=== PATIENT | female | born 1965 | race Caucasian/White ===

== ENCOUNTER 2016-06-16 07:35 | Inpatient (IN) | payer OTHER ==
[~2016-06-16 07:35] MED LIST: CLINDAMYCIN PHOSPHATE 900 MG in DEXTROSE 5 % IN WATER 100 ML IV PRN; MORPHINE SULFATE 15 MG TABLET.SA PO PRN; ROPIVACAINE HCL/PF 100 MG, KETOROLAC TROMETHAMINE 30 MG, EPINEPHrine 0.2 MG in NORMAL S... IJ PRN; TRANEXAMIC ACID 1,000 MG in NORMAL SALINE 100 ML IV PRN
[2016-06-16] MEDS: RINGERS SOLUTION,LACTATED 1,000 ML IV PRN ×2 (08:07→10:55)
[2016-06-16] MEDS ORDERED: MORPHINE SULFATE 15 MG TABLET.SA PO PRN (09:05)
--- NOTE | 2016-06-16 10:17 | PREOP NOTE ---
Preoperative Progress Note - Preoperative Changes Changes to Preop Condition?: No Changes
[2016-06-16] MEDS ORDERED: RINGERS SOLUTION,LACTATED 1,000 ML IV ONE ×2 (12:20→13:20)
[2016-06-16] MEDS ORDERED: PROMETHAZINE HCL 5 MG in DEXTROSE 5 % IN WATER 50 ML IV PRN ×2 (13:13)
[2016-06-16] MEDS ORDERED: ACETAMINOPHEN 500 MG TABLET PO PRN (13:13)
[2016-06-16] MEDS ORDERED: ZOLPIDEM TARTRATE 5 MG TABLET PO PRN (13:13)
[2016-06-16] MEDS ORDERED: MAG HYDROX/ALUMINUM HYD/SIMETH 30 ML UDC PO PRN (13:13)
[2016-06-16] MEDS ORDERED: MAGNESIUM HYDROXIDE 30 ML UDC PO PRN (13:13)
[2016-06-16] MEDS ORDERED: diphenhydrAMINE HCL 50 MG/ML VIAL IV PRN (13:13)
[2016-06-16] MEDS ORDERED: ONDANSETRON HCL/PF 2 MG/ML VIAL IV PRN (13:13)
[2016-06-16] MEDS: DEXTROSE 5%-LACTATED RINGERS 1,000 ML IV PRN ×2 (14:14→22:13)
[2016-06-16] MEDS: KETOROLAC TROMETHAMINE 30 MG/ML VIAL IV SCH ×2 (14:16→19:50)
--- NOTE | 2016-06-16 14:17 | OR ---
Operative Report - Dictated Report Narrative: Date: 06/16/2016 Preoperative diagnosis: Right hip degenerative joint disease. Postoperative diagnosis: Right hip degenerative joint disease. Procedure: Right Total hip arthroplasty. Surgeon: Jonathan Chance M.D. Manager Nursing Home: Virgil Aguilar PA-C Anesthesia: Spinal and local periarticular joint injection. Complications: None Specimens: Bone for disposal. Estimated blood loss: 50 milliliters. Retained implants: Depuy [place] size 3 femoral stem high offset. Size 48 millimeter ouside diameter 3-hole [place] Gription acetabular cup. 48 millimeter outside by 32 millimeter inside diameter highly cross-linked acetabular liner. 32 millimeter diameter +9 millimeter cobalt chromium femoral head. Cancellous 6.5mm screw 30 millimeter length Indications: Mrs. Prasad is a 50-year-old female who has had long-standing right hip pain. This patient was followed in my clinic for period of time with significant complaints of right hip pain consistent with arthritic changes. She failed conservative measures including but not limited to activity modification, passage of time, medications, and other conservative measures. Patient wished to proceed with surgical treatment. The risks, benefits, and alternatives were discussed in clinic. The risks of , blood clots, bleeding, infection, nerve/tendon blood vessel/ injury, malposition of components, dislocation and/or instability of joint, intraoperative fracture, postoperative limited range of motion, persistent pain, failure of components, and need for additional procedures. Patient wished to proceed. Consent was obtained after answering all questions. Procedure: After marking the correct extremity on the floor, the patient was taken to the operating room. A timeout was performed. IV antibiotics consisting of clindamycin were administered prior to the procedure. A spinal anesthetic was induced by anesthesia. A Last catheter was inserted. The patient was then transitioned to a lateral position on a well-padded pegboard. An axillary roll was placed. The head was in neutral position. The non- operative down leg was well-padded with SCD and TREVON hose in place. The arms were supported and padded to protect from any undue pressure on the bony prominences and nerves. A well-padded anterior and posterior pelvic and chest posts were secured in order to maintain a stable position of the pelvis. This was placed so that the pelvis was perpendicular to the floor. The body was in line with the pelvis. Once it was felt that we had protected all the bony prominences and the patient was well secured with a safety belt as well, the leg was pre-scrubbed with alcohol, prepped and draped in a standard sterile fashion. A standard anterior lateral hip incision was marked out over the greater trochanter. Ioban drapes were then placed. The skin incision was then made. Sharp dissection with a scalpel utilizing cautery for hemostasis was carried out down to the gluteus and iliotibial band fascia. This was split in line with the skin incision. The greater trochanter bursa was excised. The anterior and posterior margins of the abductor tendon were identified. The anterior 1/2-1/3 of the tendon was tagged and reflected off the greater trochanter leaving a sleeve of tendon for repair at the completion of the case. This exposed the underlying hip joint capsule. A limb length stitch was placed in the skin and referencedd off a joel on the greater trochanter for evaluation of intraoperative limb lengths. An inverted T-type capsulotomy was made extending this up to the brim of the acetabulum. Using Homans to assist with elevation of the soft tissues off the anterior, superior, and inferior aspects of the femoral neck, the hip was then placed in a figure 4 position and the femoral head was dislocated. With the leg in an externally rotated and adducted position, the cutting flag was utilized in order to joel for a standard femoral neck cut approximately a fingerbreadth above the level of the lesser trochanter. This was done with reference to pre-operative films and overall alignment. This was done while protecting the surrounding soft tissues with Homans. The femoral head was then removed and sized for guidance on preparation of the acetabulum. It was noted that there was loss of articular cartilage on both the femoral head and weightbearing portions of the acetabulum. We then returned the leg to the table and turned our attention to the acetabulum. While protecting the surrounding soft tissues, the labrum and remaining tissue in the fovea were excised using a scalpel and cautery. A series of reamers up to size 47 millimeter were utilized to prepare the acetabulum. The final reamer had good purchase and exposed the bleeding subchondral bone. The acetabulum was then thoroughly irrigated ensuring that all bony and cartilaginous materials were removed, and the final acetabular shell was impacted into place. This was placed in approximately 45 degrees of abduction and 20 degrees of anteversion utilizing the outrigger and body axis for alignment. This had a good press fit. 1 6.5mm cancellous screw was placed in the superior posterior quadrant of the acetabulum. The shell was then thoroughly irrigated and the final polyethylene was impacted into place ensuring that it seated completely. This was then protected with a sponge while we returned our attention to the femur. With the leg in a figure 4 position, utilizing Homans for soft tissue protection , a box cutting osteotome, followed by Charnley awl, followed by serial reamers and broaches were utilized in order to prepare the femur. It was found that a size 3 broach gave good axial and rotational stability. The calcar reamer was utilized in order to clean up the cut edges. The proximal femur was visualized to ensure that there were no signs of fracture. A series of heads and necks were trialed. It was found that a high offset neck and a + 9 femoral head gave good overall stability. There was minimal longitudinal instability. With the leg in the position of sleep, the femoral head was well covered. Hip range of motion was able to reach full extension and external rotation to greater than 75 degrees prior to impingement along the posterior acetabulum. The hip was able to be flexed to greater than 90 degrees with internal rotation greater than 60 degrees prior to anterior impingement. The limb lengths were near equal based on comparison to the contralateral side and the prior placed limb length stitch. At this point it was felt these were the appropriately sized femoral components as well as neck and femoral head. The trial implants were removed. The femur was thoroughly irrigated. The final implants were impacted into place, and the hip was reduced. After ensuring that there was no damage to the proximal femur , the standard periarticular joint injection of ropivacaine, Toradol, and epinephrine were injected into the joint capsule and surrounding soft tissues. Anesthesia then administered intravenous tranexamic acid. The capsule was repaired with a single interrupted #1 Vicryl. The abductor tendon was repaired to the greater trochanter utilizing #5 Ethibond through drill holes. This was oversewn with #1 Vicryl. The fascia was closed with interrupted #1 Vicryl. A drain was placed above the fascia exiting proximally. The wounds were thoroughly irrigated as we closed in layers. The deep and subcutaneous fat layers were closed with 0 and 3-0 Vicryl respectively. The subcutaneous tissue was closed with a running 3-0 Vicryl and the skin with miguel. All sponge, needle, blade, and instrument counts were correct prior to closing the wounds. Sterile dressings consisting of Xeroform, 4 x 4's, ABD, and tape were applied. The patient was awoken and transferred to her hospital bed and then to the postanesthesia care unit in stable condition. Postoperative condition: The plan is to admit to the medical/surgical inpatient floor postoperatively. There will be a projected 2 to 4 day hospital stay. Postoperatively 24 hours of IV antibiotics, pain control, physical therapy, occupational therapy, and medical comanagement will be utilized. Patient will be weightbearing as tolerated with anterior hip precautions. Postoperative films will be obtained in the recovery room.
[2016-06-16] MEDS: oxyCODONE HCL/ACETAMINOPHEN 1 TAB TABLET PO PRN (18:02)
[2016-06-16] MEDS: HYDROmorphone HCL 1 MG/ML DISP.SYRIN IV PRN (20:35)
[2016-06-16] MEDS: MORPHINE SULFATE 15 MG TABLET.SA PO SCH (20:39)
[2016-06-16] MEDS: SENNOSIDES/DOCUSATE SODIUM 1 TAB TABLET PO SCH (20:39)
[2016-06-17] MEDS: CLINDAMYCIN PHOSPHATE 600 MG in DEXTROSE 5 % IN WATER 100 ML IV SCH ×4 (00:05→11:39)
[2016-06-17] MEDS: KETOROLAC TROMETHAMINE 30 MG/ML VIAL IV SCH ×4 (02:43→20:29)
[2016-06-17] MEDS: HYDROmorphone HCL 1 MG/ML DISP.SYRIN IV PRN (02:43)
[2016-06-17] MEDS: oxyCODONE HCL/ACETAMINOPHEN 1 TAB TABLET PO PRN ×2 (05:49→13:04)
[2016-06-17 06:43] LABS: Hematocrit 36.2 % (37.0-47.0); Hemoglobin 11.8 gm/dL (12.5-16.0); Mean Cell Volume 85.6 fl (78-100); Mean Corpuscular Hemoglobin 27.9 pg (27-31); Mean Corpuscular Hgb Conc 32.6 g/dl (32-36); Mean Platelet Volume 9.4 fl (6.0-9.5); Platelet Count 229 K/mm3 (150-450); Red Blood Count 4.23 M/mm3 (4.2-5.4); Red Cell Distribution Width 14.1 % (11.5-14.0); White Blood Count 7.6 K/mm3 (4.0-10.5)
[2016-06-17 06:58] LABS: Anion Gap 13.7 mmol/L (6.8-13.8); BUN/Creatinine Ratio 15.9 (9.0-21.6); Calcium * 8.5 mg/dL (7.9-10.9); Carbon Dioxide 27.1 mmol/L (24-32.6); Estimated Creat Clear 67.9; Potassium 3.8 mmol/L (3.4-4.6)
--- NOTE | 2016-06-17 08:16 | PN ---
Subjective - Date and Time Seen Date: 06/17/16 Time: 08:12 Subjective Narrative: Reports has felt good until sitting up this am- reports got nauseated. Pain controlled. No chest pain or SOB. No other complaints. Objective Objective Narrative: Bandages C/D/I. N/V intact RLE. Calves supple. N/V intact. 5/5 PF/DF ankle. - Vitals Vitals: Last Vital Signs Temp 37.0 C 06/17/16 00:30 Pulse 86 06/17/16 02:30 Resp 16 06/17/16 02:30 BP 127/89 06/17/16 02:30 Pulse Ox 97 06/17/16 02:30 - Abnormal Lab Findings Abnormal Lab Findings: Abnormal Lab Results 06/17/16 06/17/16 Range/Units 06:37 06:37 Hgb 11.8 L (12.5-16.0) gm/dL Hct 36.2 L (37.0-47.0) % RDW 14.1 H (11.5-14.0) % Random Glucose 115 H (70-110) mg/dL - Exam Constitutional: Present: Alert, Oriented x3, Cooperative, No distress Cauti Physician Documentation - Urinary Catheter Management Urethral (Last) Date of Insertion: 06/16/16 Time of Insertion: 11:05 Assessment/Plan - Problems/Diagnosis (1) History of total right hip arthroplasty Problem: Acute Narrative: PT, pain control, anticoagulation (2) Acute blood loss anemia Problem: Acute Narrative: asymptomatic, recheck labs tomorrow am (3) Nausea Problem: Acute Narrative: One episode with getting up, monitor pain medications for any symptoms
[2016-06-17] MEDS: MORPHINE SULFATE 15 MG TABLET.SA PO SCH ×2 (10:10→20:28)
[2016-06-17] MEDS: ENOXAPARIN SODIUM 40 MG/0.4 ML SYRG SC SCH (11:50)
[2016-06-17] MEDS: SENNOSIDES/DOCUSATE SODIUM 1 TAB TABLET PO SCH (20:28)
[2016-06-18] MEDS: KETOROLAC TROMETHAMINE 30 MG/ML VIAL IV SCH ×2 (02:58→07:56)
[2016-06-18] MEDS: oxyCODONE HCL/ACETAMINOPHEN 1 TAB TABLET PO PRN ×2 (05:03→13:08)
[2016-06-18 06:25] LABS: Hematocrit 34.7 % (37.0-47.0); Hemoglobin 11.2 gm/dL (12.5-16.0); Mean Cell Volume 85.9 fl (78-100); Mean Corpuscular Hemoglobin 27.7 pg (27-31); Mean Corpuscular Hgb Conc 32.3 g/dl (32-36); Platelet Count 211 K/mm3 (150-450); Red Blood Count 4.04 M/mm3 (4.2-5.4); Red Cell Distribution Width 13.9 % (11.5-14.0); White Blood Count 6.6 K/mm3 (4.0-10.5)
[2016-06-18 06:38] LABS: Anion Gap 11.7 mmol/L (6.8-13.8); BUN/Creatinine Ratio 7.4 (9.0-21.6); Calcium * 8.5 mg/dL (7.9-10.9); Carbon Dioxide 26.1 mmol/L (24-32.6); Estimated Creat Clear 59.2; Potassium 3.8 mmol/L (3.4-4.6)
[2016-06-18] MEDS: MORPHINE SULFATE 15 MG TABLET.SA PO SCH (08:27)
[2016-06-18] MEDS: ENOXAPARIN SODIUM 40 MG/0.4 ML SYRG SC SCH (12:21)
[2016-06-18 14:27] VITALS: BP 144/79
--- NOTE | 2016-06-18 14:37 | DS ---
"(1) Acute blood loss anemia Problem: Acute (2) History of total right hip arthroplasty Problem: Acute (3) Osteoarthritis Problem: Chronic Qualifiers: Osteoarthritis location: hip Osteoarthritis type: primary Laterality: right Qualified Code(s): M16.11 - Unilateral primary osteoarthritis, right hip Description of Stay: Miss Prasad was admitted to the floor after undergoing right total hip arthroplasty. Tolerated this well. Was admitted to the floor postoperatively for 24 hours of IV antibiotics, pain control, medical comanagement, and occupational and physical therapy. OT and PT were consulted to assist with activities of daily living and ambulation. Was made weightbearing as tolerated with anterior hip precautions. Pain was initially controlled with IV regimen. This was transitioned to oral once tolerating a by mouth intake. Was resumed on home diet and medications. Had a Last catheter inserted and the operating room which was discontinued on postoperative day 1. A drain was placed intraoperatively which was discontinued on postoperative day 2. Lovenox SCD and TREVON hose were utilized for DVT prophylaxis. Vital signs remained stable to the hospital course. Serial labs were obtained which showed a final hemoglobin of 11.2 grams. BMP was reviewed and was stable. Physical examination throughout the hospital course showed an extremity that had sensation that was intact to light touch, palpable pulses, a benign wound, motor intact to the toes , ankle, and knee. Once an oral pain regimen was tolerated and physical therapy goals were met, it was felt that they were stable for discharge to home. Instructions: Continue with weightbearing as tolerated and anterior hip precautions no active abduction. Keep the wound clean and dry. Cover with dry gauze and tape. Change every 2-3 days as needed. Cover wound while showering. Continue with physical therapy. Resume home diet. Report any fever over 101.5 Fahrenheit, uncontrolled pain, increased drainage, foul odor of drainage, new or increased calf pain or shortness of breath, or any other significant complaints. A 325mg dialy aspirin will be started after finishing anticoagulation if not allergic. Continue with TREVON hose on the operative extremity until instructed otherwise. No driving until instructed otherwise. Follow up in approximately 10-14 days. Procedures Performed: see notes below List Procedures: Right total hip arthroplasty Discharge Disposition: Home self care Disposition: Home self-care Condition: Good Discharge Activity: Weight bearing, Other - anterior hip precautions Discharge Diet: General/regular food Prison Therapy: Physicial Therapy Referrals: Марина Lance FNP [Primary Care Provider] - Additional Patient Instructions (free text): Fax PT order to [facility] at [phone]. Your PT appointment is on 06/23 at 10am, please arrive at 9:30am. This appointment at the [facility] ( on the [facility] , by [facility]. [facility] | [place] [address] ). You need to bring a copy of your insurance card and patient transportation driver's license with you. Prescriptions (Any new or edited meds): Enoxaparin Sodium [Lovenox] 40 mg SC Q24H #7 disp.syrin Morphine Sulfate [Ms Contin] 15 mg PO Q12H #20 tablet.sa oxyCODONE HCL/ACETAMINOPHEN [Percocet 5 MG/325 MG] 2 tab PO Q4H PRN #90 tablet PRN Reason: Moderate Pain Complete Home Medications List: Complete Home Medication List: Diclofenac Sodium [Voltaren] 50 mg PO BID 10/17/15 Enoxaparin Sodium [Lovenox] 40 mg SC Q24H #7 disp.syrin 06/18/16 Morphine Sulfate [Ms Contin] 15 mg PO Q12H #20 tablet.sa 06/18/16 Sennosides/Docusate Sodium [Senokot-S] 2 tab PO HS tablet 06/18/16 oxyCODONE HCL/ACETAMINOPHEN [Percocet 5 MG/325 MG] 2 tab PO Q4H PRN #90 tablet 06/18/16"
== END 2016-06-18 16:08 | disposition home or self-care (01) | DRG 470 ==
LOC: MS 07:35
PROVIDERS: ADMIT Orthopaedic Surgery; ATTEND Orthopaedic Surgery
PROC: 0SR90JZ Replacement of Right Hip Joint with Synthetic Substitute, Open Approach (ICD-10-PCS; principal; 2016-06-16 11:30)
DX: M16.11 Unilateral primary osteoarthritis, right hip (principal); D62 Acute posthemorrhagic anemia; Z87.891 Personal history of nicotine dependence

== ENCOUNTER 2019-12-19 08:23 | Inpatient (IN) ==
[~2019-12-19 08:23] MED LIST changes: -CLINDAMYCIN PHOSPHATE 900 MG in DEXTROSE 5 % IN WATER 100 ML IV PRN; +ROPIVACAINE HCL/PF 100 MG, EPINEPHrine 0.2 MG, KETOROLAC TROMETHAMINE 30 MG in NORMAL S... IJ PRN; -ROPIVACAINE HCL/PF 100 MG, KETOROLAC TROMETHAMINE 30 MG, EPINEPHrine 0.2 MG in NORMAL S... IJ PRN; +ceFAZolin SODIUM 1 GM VIAL IV PRN
[2019-12-19] MEDS ORDERED: ceFAZolin SODIUM 1 GM VIAL ONE (08:54)
[2019-12-19] MEDS ORDERED: PROPOFOL VIAL IV ONE (08:56)
[2019-12-19] MEDS ORDERED: MIDAZOLAM HCL/PF 5 MG/ML VIAL ONE (08:56)
--- NOTE | 2019-12-19 09:11 | ANES ---
Anesthesia Pre Procedure Eval Vitals/Labs: Last Vital Signs Temp 37.3 C 12/19/19 08:37 Pulse 84 12/19/19 08:37 Resp 18 12/19/19 08:37 BP 120/78 12/19/19 08:37 Pulse Ox 99 12/19/19 08:37 HOME MEDICATIONS hydrocodone 5 mg-acetaminophen 325 mg tablet 1 tab PO Q8H PRN 05/05/19 [Last Taken Unknown] lisinopril 20 mg tablet 20 mg PO DAILY 05/05/19 [Last Taken 12/19/19 08:00] diclofenac potassium 50 mg tablet 50 mg PO TID tab 11/17/19 [Last Taken Unknown] duloxetine 60 mg capsule,delayed release 60 mg PO DAILY cap 11/17/19 [Last Taken Unknown] Allergies/Adverse Reactions: Allergies Allergy/AdvReac Type Severity Reaction Status Date / Time cephalexin monohydrate Allergy Severe swelling Verified 12/19/19 08:56 [From Keflex] to face and throat Sulfa (Sulfonamide Allergy Severe swelling Verified 12/19/19 08:56 Antibiotics) to face and throat tetracycline Allergy Severe swelling Verified 12/19/19 08:56 to face and throat - Planned Procedure Planned Procedure: Left Total Hip Arthroplasty Medication List Reviewed:: Yes Allergies Verified: Yes Medical History (Last Reviewed 12/19/19 @ 09:02 by Skyler Boyer CRNA) Left hip pain Onset Date: ~04/2019 PTSD (post-traumatic stress disorder) Onset Date: ~2009 after her son Hypertension Onset Date: ~2018 Surgical History (Last Reviewed 12/19/19 @ 09:02 by Skyler Boyer CRNA) H/O total hip arthroplasty Onset Date: ~05/2016 right: Dr. Chance H/O tubal ligation Onset Date: ~1989 History of appendectomy Onset Date: ~1979 Family History (Last Reviewed 12/19/19 @ 09:02 by Skyler Boyer CRNA) Sister History of breast cancer Grandmother , maternal Ovarian cancer Uterine cancer Mother Rheumatoid arthritis Father Alive and well - Family Anesthesia History Family History:: no untoward family reactions to anesthesia, no familial bleeding tendencies, no family history of clotting disorders, no family history of premature - Airway/Neck/Teeth Teeth Condition: intact Mallampatti Score: 2 Thyromental (T-M) distance: > 6 cm Mandibulo Hyoid distance: > 3 cm - Respiratory Respiratory Physical: lungs clear Smoking Status: Never smoker Sleep Apnea currently treated: No Sleep Apnea by current assessment: No - Some signs but not definitive. - Cardiovascular Cardiac History: hypertension Tolerate Activity: Fair Heart Sounds: S1 & S2, Regular - Gastrointestinal NPO since: 0 - Anesthesia Assessment and Plan ASA Class: PS, III Anesthesia Type Plan: Spinal
[2019-12-19] MEDS ORDERED: CLINDAMYCIN IN 0.9 % SOD CHLOR 600 MG/50 ML BAG IV SCH (09:15)
[2019-12-19] MEDS ORDERED: BUPIVACAINE HCL/PF 10 ML VIAL ONE (09:21)
[2019-12-19] MEDS: RINGER'S SOLUTION,LACTATED 1,000 ML IV PRN ×2 (09:30→11:44)
[2019-12-19] MEDS ORDERED: diphenhydrAMINE HCL 50 MG/ML VIAL IV PRN (11:32)
[2019-12-19] MEDS ORDERED: MAG HYDROX/ALUMINUM HYD/SIMETH 30 ML UDC PO PRN (11:32)
[2019-12-19] MEDS ORDERED: ZOLPIDEM TARTRATE 5 MG TABLET PO PRN (11:32)
[2019-12-19] MEDS ORDERED: ONDANSETRON HCL/PF 2 MG/ML VIAL IV PRN (11:32)
[2019-12-19] MEDS ORDERED: MAGNESIUM HYDROXIDE 30 ML UDC PO PRN (11:32)
[2019-12-19] MEDS ORDERED: ACETAMINOPHEN 500 MG TABLET PO PRN (11:32)
[2019-12-19] MEDS ORDERED: MORPHINE SULFATE 4 MG/ML SYRG IV PRN (11:32)
--- NOTE | 2019-12-19 11:32 | OR ---
Operative Report - Dictated Report Narrative: Date: 12/19/2019 Preoperative diagnosis: Left hip degenerative joint disease. Postoperative diagnosis: Left hip degenerative joint disease. Procedure: Left total hip arthroplasty. Surgeon: Jonathan Chance M.D. Night Filler: Virgil Aguilar PA-C (provided an essential set of skilled, educated and assisted with transfer, positioning, prepping, draping, manipulation, traction, irrigation, suturing, and placement of dressings all of which cannot be performed by the available surgical crew) Anesthesia: Spinal and local periarticular joint injection. Complications: None Specimens: Bone. Estimated blood loss: 150 milliliters. Retained implants: Depuy [place] size 3 femoral stem high offset. Size 50 millimeter outside diameter 3-hole [place] Gription acetabular cup. 50 millimeter outside by 32 millimeter inside diameter highly cross-linked acetabular liner. 32 millimeter diameter +5 millimeter ceramic femoral head. Cancellous 6.5mm screw 30 millimeter length Indications: Mrs. Prasad is a 54-year-old female who has had longstanding left hip pain and arthrosis. This patient was followed in my clinic for period of time with significant complaints of left hip pain consistent with arthritic changes. She failed conservative measures including but not limited to activity modification, passage of time, medications, and other conservative measures. Patient wished to proceed with surgical treatment. The risks, benefits, and alternatives were discussed in clinic. The risks of , blood clots, bleeding, infection, nerve/tendon blood vessel/ injury, malposition of components, dislocation and/or instability of joint, intraoperative fracture, postoperative limited range of motion, persistent pain, failure of components, and need for additional procedures. Patient wished to proceed. Consent was obtained after answering all questions. Procedure: After marking the correct extremity on the floor, the patient was taken to the operating room. A timeout was performed. IV antibiotics consisting of clindamycin due to allergies were administered prior to the procedure. A spinal anesthetic was induced by anesthesia. A Last catheter was inserted. The patient was then transitioned to a lateral position on a well- padded pegboard. An axillary roll was placed. The head was in neutral position. The non-operative down leg was well-padded with SCD and TREVON hose in place. The arms were supported and padded to protect from any undue pressure on the bony prominences and nerves. A well-padded anterior and posterior pelvic and chest posts were secured in order to maintain a stable position of the pelvis. This was placed so that the pelvis was perpendicular to the floor. The body was in line with the pelvis. Once it was felt that we had protected all the bony prominences and the patient was well secured with a safety belt as well, the leg was pre-scrubbed with alcohol, prepped and draped in a standard sterile fashion. A standard anterior lateral hip incision was marked out over the greater trochanter. Ioban drapes were then placed. The skin incision was then made. Sharp dissection with a scalpel utilizing cautery for hemostasis was carried out down to the gluteus and iliotibial band fascia. This was split in line with the skin incision. The greater trochanter bursa was excised. The anterior and posterior margins of the abductor tendon were identified. The anterior 1/2-1/3 of the tendon was tagged and reflected off the greater trochanter leaving a sleeve of tendon for repair at the completion of the case. This exposed the underlying hip joint capsule. A limb length stitch was placed in the skin and referencedd off a joel on the greater trochanter for evaluation of intraoperative limb lengths. An inverted T-type capsulotomy was made extending this up to the brim of the acetabulum. Using Homans to assist with elevation of the soft tissues off the anterior, superior, and inferior aspects of the femoral neck, the hip was then placed in a figure 4 position and the femoral head was dislocated. With the leg in an externally rotated and adducted position, the cutting flag was utilized in order to joel for a standard femoral neck cut approximately a fingerbreadth above the level of the lesser trochanter. This was done with reference to pre-operative films and overall alignment. This was done while protecting the surrounding soft tissues with Homans. The femoral head was then removed and sized for guidance on preparation of the acetabulum. It was noted that there was loss of articular cartilage on both the femoral head and weightbearing portions of the acetabulum. We then returned the leg to the table and turned our attention to the acetabulum. While protecting the surrounding soft tissues, the labrum and remaining tissue in the fovea were excised using a scalpel and cautery. A series of reamers up to size 50 millimeter were utilized to prepare the acetabulum. The final reamer had good purchase and exposed the bleeding subchondral bone. The acetabulum was then thoroughly irrigated ensuring that all bony and cartilaginous materials were removed, and the final acetabular shell was impacted into place. This was placed in approximately 45 degrees of abduction and 20 degrees of anteversion utilizing the outrigger and body axis for alignment. This had a good press fit. 1 6.5mm cancellous screw was placed in the superior posterior quadrant of the acetabulum. The shell was then thoroughly irrigated and the final polyethylene was impacted into place ensuring that it seated completely. This was then protected with a sponge while we returned our attention to the femur. With the leg in a figure 4 position, utilizing Homans for soft tissue protection, a box cutting osteotome, followed by Charnley awl, followed by serial reamers and broaches were utilized in order to prepare the femur. It was found that a size 3 broach gave good axial and rotational stability. The calcar reamer was utilized in order to clean up the cut edges. The proximal femur was visualized to ensure that there were no signs of fracture. A series of heads and necks were trialed. It was found that a high offset neck and a + 5 femoral head gave good overall stability. There was minimal longitudinal instability. With the leg in the position of sleep, the femoral head was well covered. Hip range of motion was able to reach full extension and external rotation to greater than 75 degrees prior to impingement along the posterior acetabulum. The hip was able to be flexed to greater than 90 degrees with internal rotation greater than 60 degrees prior to anterior impingement. The limb lengths were near equal based on comparison to the contralateral side and the prior placed limb length stitch. At this point it was felt these were the appropriately sized femoral components as well as neck and femoral head. The trial implants were removed. The femur was thoroughly irrigated. The final implants were impacted into place, and the hip was reduced. After ensuring that there was no damage to the proximal femur, the standard periarticular joint injection of ropivacaine, Toradol, and epinephrine were injected into the joint capsule and surrounding soft tissues. Anesthesia then administered intravenous tranexamic acid. The capsule was repaired with a single interrupted #1 Vicryl. The abductor tendon was repaired to the greater trochanter utilizing #5 Ethibond through drill holes. This was oversewn with #1 Vicryl. The fascia was closed with interrupted #1 Vicryl and running #1 strata fix barbed suture. The wounds were thoroughly irrigated as we closed in layers. The deep and subcutaneous fat layers were closed with 0 and 3-0 Vicryl respectively. The subcutaneous tissue was closed with a running 3-0 Vicryl and the skin miguel. All sponge, needle, blade, and instrument counts were correct prior to closing the wounds. Sterile dressings consisting of xeroform, 4 x 4's, and tape were applied. The patient was awoken and transferred to her hospital bed and then to the postanesthesia care unit in stable condition. Postoperative condition: The plan is to admit to the medical/surgical inpatient floor postoperatively. There will be a projected 1 to 3 day hospital stay. Postoperatively 24 hours of IV antibiotics, pain control, physical therapy, occupational therapy, and medical comanagement will be utilized. Patient will be weightbearing as tolerated with anterior hip precautions. Postoperative films will be obtained in the recovery room.
--- NOTE | 2019-12-19 11:45 | ANES ---
Post Anesthesia Discharge - Transfer of Care Transfer of Care handoff given to nurse: Yes - Discharge from PACU Discharge from PACU when meets criteria: Yes - Alert and comfortable.
--- NOTE | 2019-12-19 12:07 | ANES ---
Post Anesthesia Assessment - Vital Signs Vitals: Last Vital Signs Temp 36.3 C 12/19/19 12:00 Pulse 61 12/19/19 12:00 Resp 16 12/19/19 12:00 BP 98/66 12/19/19 12:00 Pulse Ox 97 12/19/19 12:00 Airway Patency: Normal - Mental Status Level Of Consciousness: Awake, Alert, Appropriate - Pain Level Pain Score: 0 - N/V Assessment Nausea/Vomiting Presence: None Dehydration:: No
[2019-12-19] MEDS: DEXTROSE 5%-LACTATED RINGERS 1,000 ML IV PRN ×2 (12:24→20:30)
[2019-12-19] MEDS: KETOROLAC TROMETHAMINE 15 MG/ML VIAL IV SCH ×3 (12:26→23:45)
[2019-12-19] MEDS: oxyCODONE HCL/ACETAMINOPHEN 1 TAB TABLET PO PRN ×2 (16:03→22:45)
[2019-12-19] MEDS: CLINDAMYCIN IN 0.9 % SOD CHLOR 900 MG/50 ML BAG IV SCH (19:26)
[2019-12-19] MEDS: MORPHINE SULFATE 15 MG TABLET.SA PO SCH (20:32)
[2019-12-19] MEDS ORDERED: SENNOSIDES/DOCUSATE SODIUM 1 TAB TABLET PO SCH (21:00)
[2019-12-20] MEDS: CLINDAMYCIN IN 0.9 % SOD CHLOR 900 MG/50 ML BAG IV SCH (02:56)
[2019-12-20] MEDS: KETOROLAC TROMETHAMINE 15 MG/ML VIAL IV SCH ×2 (05:42→11:14)
[2019-12-20 06:34] LABS: Hematocrit 24.6 % (37.0-47.0); Mean Cell Volume 70.9 fl (78-100); Mean Corpuscular Hemoglobin 20.5 pg (27-31); Mean Corpuscular Hgb Conc 28.9 g/dl (32-36); Mean Platelet Volume 8.7 fl (8-12.5); Platelet Count 300 K/mm3 (150-450); Red Blood Count 3.47 M/mm3 (4.2-5.4)
[2019-12-20 06:44] LABS: Hemoglobin 7.1 gm/dL (12.5-16.0)
[2019-12-20 07:00] LABS: Anion Gap 11.3 mmol/L (6.8-13.8); BUN/Creatinine Ratio 12.2 (9.0-21.6); Calcium * 8.7 mg/dL (7.9-10.9); Carbon Dioxide 27.5 mmol/L (24-32.6); Estimated Creat Clear 46.3; Potassium 3.8 mmol/L (3.4-4.6)
[2019-12-20] MEDS: oxyCODONE HCL/ACETAMINOPHEN 1 TAB TABLET PO PRN ×3 (07:24→16:44)
[2019-12-20] MEDS ORDERED: DULoxetine HCL 30 MG CAPSULE.SA PO SCH (09:00)
[2019-12-20] MEDS ORDERED: LISINOPRIL 20 MG TABLET PO SCH (09:00)
[2019-12-20] MEDS: MORPHINE SULFATE 15 MG TABLET.SA PO SCH (09:27)
[2019-12-20] MEDS ORDERED: MORPHINE SULFATE 2 MG/ML DISP.SYRIN IV PRN (10:00)
[2019-12-20] MEDS ORDERED: ENOXAPARIN SODIUM 40 MG/0.4 ML SYRG SC SCH (10:33)
--- NOTE | 2019-12-20 15:51 | DS ---
(1) Status post left hip replacement Problem: Acute (2) Hypertension Problem: Chronic Date of Discharge:: 12/20/19 Hospital Course: Mrs Prasad was admitted to the floor after undergoing left total hip arthroplasty. Tolerated this well. Was admitted to the floor postoperatively for 24 hours of IV antibiotics, pain control, medical comanagement, and occupational and physical therapy. OT and PT were consulted to assist with activities of daily living and ambulation. Was made weightbearing as tolerated with range of motion as tolerated utilizing anterior hip precautions. Pain was initially controlled with IV regimen. This was transitioned to oral once tolerating a by mouth intake. Was resumed on home diet and medications. Had a Last catheter inserted and the operating room which was discontinued on postoperative day 1. Lovenox SCD and TREVON hose were utilized for DVT prophylaxis. Vital signs remained stable to the hospital course. Serial labs were obtained which showed a final hemoglobin of 7.1 grams. BMP was reviewed and was stable. Physical examination throughout the hospital course showed an extremity that had sensation that was intact to light touch, palpable pulses, a benign wound, motor intact to the toes, ankle, and knee. Knee range of motion was approximately [] degrees to [] degrees. Once an oral pain regimen was tolerated and physical therapy goals were met, it was felt that they were stable for discharge to home. Instructions: Continue with weightbearing as tolerated and range of motion as tolerated utilizing anterior hip precautions. Keep wound clean and dry. If you note any drainage or for comfort you can cover with dry gauze and tape. Change every 2- 3 days as needed. Continue with physical therapy. Resume home diet. Report any fever over 101.5 Fahrenheit, uncontrolled pain, increased drainage, foul odor of drainage, new or increased calf pain or shortness of breath, or any other significant complaints. A 325mg dialy aspirin will be started after finishing anticoagulation if not allergic. Continue with TREVON hose on the operative extremity until instructed otherwise. No driving until instructed otherwise. Follow up in approximately 10-14 days. Procedures Performed: see notes below List Procedures: Left total hip arthroplasty Results and Findings: Lab Pending Results 12/20/19 06:30: WBC 7.0, RBC 3.47 L, Hgb 7.1 L* D, Hct 24.6 L, MCV 70.9 L, MCH 20.5 L, MCHC 28.9 L, RDW 22.0 H, Plt Count 300, MPV 8.7 12/20/19 06:30: Sodium 137, Plasma Sodium 137, Potassium 3.8, Chloride 102, Carbon Dioxide 27.5, Anion Gap 11.3, BUN 14, Creatinine 1.15, Est GFR (Non-Af Amer) 52 L, BUN/Creatinine Ratio 12.2, Random Glucose 110, Calcium 8.7 Discharge Location: Home Disposition: Home self-care Condition: Good Discharge Activity: Activity as tolerated, Weight bearing, Other - Utilizing anterior hip precautions with wheeled walker Discharge Diet: Low salt Referrals: Andrea Lerma APRN [Primary Care Provider] - [place] [Staff Physician] - 01/04/20 10:30 am Additional Patient Instructions (free text): Physical Therapy appointment at [facility] on 12/22/2019 @ 08:00am. Follow up Orthopedic office appointment on ThursdayJanuary 03 at 10:30am. Prescriptions (Any new or edited meds): Enoxaparin Sodium [Lovenox] 40 mg SC Q24H #7 disp.syrin Transmission Status: Pending to [employer] #[id number] Morphine Sulfate [Ms Contin] 15 mg PO Q12H #14 tablet.sa Transmission Status: Received by [employer] #[id number] oxyCODONE HCL/ACETAMINOPHEN [Percocet 5 MG/325 MG] 2 tab PO Q4H PRN #56 tab PRN Reason: Moderate Pain (Pain Scale 4-6) Transmission Status: Received by [employer] #[id number] Sennosides/Docusate Sodium [Senokot-S] 2 tab PO HS #30 tab Transmission Status: Pending to [employer] #[id number] Complete Home Medications List: Complete Home Medication List: lisinopril 20 mg tablet 20 mg PO DAILY 05/05/19 diclofenac potassium 50 mg tablet 50 mg PO TID tab 11/17/19 duloxetine 60 mg capsule,delayed release 60 mg PO DAILY cap 11/17/19 Enoxaparin Sodium [Lovenox] 40 mg SC Q24H #7 disp.syrin 12/20/19 Morphine Sulfate [Ms Contin] 15 mg PO Q12H #14 tablet.sa 12/20/19 Sennosides/Docusate Sodium [Senokot-S] 2 tab PO HS #30 tab 12/20/19 oxyCODONE HCL/ACETAMINOPHEN [Percocet 5 MG/325 MG] 2 tab PO Q4H PRN #56 tab 12/20/19 Amb Orders for Discharge: PT Evaluation and Treatment* Facility: [facility], Location: Rehabilitation Services Forms: Patient Portal Registration
[2019-12-20 16:20] VITALS: BP 132/51
== END 2019-12-20 16:19 | disposition home or self-care (01) | DRG 470 ==
LOC: MS 08:23 → EDSTATUS 09:30
PROVIDERS: ADMIT Orthopaedic Surgery; ATTEND Orthopaedic Surgery
DX: M16.12 Unilateral primary osteoarthritis, left hip; I10 Essential (primary) hypertension; F32.9 Major depressive disorder, single episode, unspecified
CPT/HCPCS: 36415; 73502; 80048; 85027; 97110; 97116; 97161; 97165; 97530; 97535

== ENCOUNTER 2020-02-10 11:30 | Inpatient (IN) ==
--- NOTE | 2020-02-10 12:20 | ERNOTE ---
Dyspnea - Date Date of Service: 02/10/20 - General Time Seen by Provider: 02/10/20 11:40 Source: patient Exam Limitations: physical impairment - Immun/Allergies/Home Medications Immunizations: IMMUNIZATION HX Immunizations Up to Date Yes History of Influenza Vaccine No Hx Pneumococcal Vaccination No Allergies/Adverse Reactions: Allergies cephalexin monohydrate [From Keflex] Allergy (Severe, Verified 02/10/20 11:50) swelling to face and throat Sulfa (Sulfonamide Antibiotics) Allergy (Severe, Verified 02/10/20 11:50) swelling to face and throat tetracycline Allergy (Severe, Verified 02/10/20 11:50) swelling to face and throat Home Medications: HOME MEDICATIONS Ferrous Sulfate 325 mg PO BID #60 tablet. 01/16/20 [Last Taken Unknown] Diclofenac Sodium [Voltaren] 50 mg PO HS 02/10/20 [Last Taken Unknown] Duloxetine HCl 60 mg PO DAILY 02/10/20 [Last Taken Unknown] Furosemide [Lasix] 40 mg PO DAILY 02/10/20 [Last Taken Unknown] Lisinopril [Prinivil] 10 mg PO DAILY 02/10/20 [Last Taken Unknown] - History of Present Illness Narrative: Patient is a 54 years old female who present sent from the office of Dr. Chance. Patient past medical history is significant for a left arthroplasty done in November 2013 with poor incision healing. Patient presented to the office of Dr. Castellanos this morning to have her wound evaluated, and was found to be tachypneic, short of breath, and tachycardic. Dr. Castellanos asked her to come to the ED to be evaluated. Patient reports that post surgery she initially did well. But then developed a blister over her incision will make it difficult in the following ways to remove stitches. She den started to use a walker to help her ambulate, and consequently developed costochondritis due to putting too much strength on her shoulder. 3 weeks ago patient reports she had a CT chest PE protocol performed due to her tachypnea which rule out pulmonary emboli. Patient also reports leg swelling for which she has been given Lasix by her primary 1 month ago, and reports no improvement in her leg swelling. She reports that her primary increase her Lasix to 40 mg last Thursday. Patient also reports that prior to surgery his hemoglobin was 7.1, she was started on iron supplementation post surgery and her last hemoglobin done at the clinic 2 to 3 weeks ago is still around 7. Patient reported that her last colonoscopy was done 10 years ago. She reports having a large clot with each bowel movement and bleeding hemorrhoid. Patient reported that since surgery she has been having difficulty with constipation due to being on opioids for pain management. She takes stool softener daily. Her last bowel movement was 2 days ago, and was having clots and bright red blood in it. She reports having improvement in her costochondritis and having only mild pain on the right upper sternocostal cartilage. Date (Duration): 01/20/20 Severity: moderate Treatment C[employer] INST[employer]ER: none Initiating event: Reports: other - Post surgery Frequency of episodes: Reports: chronic episodes, other - For almost 2 months Modifying Factors - (Improves): Reports: rest Modifying Factors (Worsens): Reports: other - Ambulation Prior Treatment: Reports: recently seen - By Dr. Pressley who sent her to the ED Review of Systems - Review of Systems Constitutional: Absent: fever EYE: Absent: eye pain ENT: Absent: ear pain Respiratory: Present: shortness of breath. Absent: cough, wheezing Cardiology: Present: other - Right side of chest along upper cartilage of the sternocostal junction Genitourinary: Absent: dysuria Musculoskeletal: Absent: joint pain - Left hip Endocrine: Present: intolerance to heat, intolerance to cold. Absent: excessive sweating All Other Systems: All systems neg except as marked Medical History (Last Reviewed 02/10/20 @ 11:50 by Estelle Arana RN) Left hip pain Onset Date: ~04/2019 PTSD (post-traumatic stress disorder) Onset Date: ~2009 after her son Hypertension Onset Date: ~2018 Surgical History: Surgical History (Last Reviewed 02/10/20 @ 11:50 by Estelle Arana RN) H/O total hip arthroplasty Onset Date: ~05/2016 right: Dr. Chance, 12/19/19 left hip: H/O tubal ligation Onset Date: ~1989 History of appendectomy Onset Date: ~1979 Family History: Family History (Last Reviewed 02/10/20 @ 11:50 by Estelle Arana RN) Sister History of breast cancer Grandmother , maternal Ovarian cancer Uterine cancer Mother Rheumatoid arthritis Father Alive and well Social History: (Last Reviewed 02/10/20 @ 11:50 by Estelle Arana RN) Social History: Marital status: seperated current occupational status: employed current occupation: Paraprofessional Highest education level completed: some college, no degree Service: No Tobacco: Smoking Status: Never smoker Alcohol: alcohol intake: current details: rare Substance Use: substance use type: marijuana Dietary Habits: caffeine: Yes Type: carbonated beverages, coffee, tea Physical Exam - Physical Exam General Appearance: Present: wd/wn, moderate distress, other - Pale Head Exam: Present: normal inspection Eye Exam: Normal inspection: bilateral, PERRL: bilateral, EOMI: bilateral Ears, Nose, Throat: Present: normal ENT inspection Neck: Present: normal inspection Respiratory: Present: other - Tachypneic Cardiovascular/Chest: Present: no murmur, tachycardia, other - Lower extremity edema 2+ Peripheral Pulses: N=norm/S=strong/W=weak/B=bound/A=absent: Radial (R): Normal, Radial (L): Normal, Dorsalis-pedis (R): Normal, Dorsalis-pedis (L): Normal Gastrointestinal/Abdominal: Present: normal bowel sounds, other - Obesity Back Exam: Present: normal inspection Extremity Exam: Present: pedal edema - Left hip surgical incision not completely closed., extremity edema, other Skin Exam: Present: normal color, pallor Lymphatic Exam: Present: no adenopathy Progress - Results and Orders Patient's Lab Results:: I have reviewed the patient's lab results. - Vital Signs Patient's Vital Signs:: I have reviewed the patient's vital signs. Vital Signs: Vital Signs 02/10/20 11:30 02/10/20 11:50 Temperature 36 C Pulse Rate 91 99 Respiratory Rate 30 H Blood Pressure 138/56 - EKG EKG #1 EKG: other - sinus tachycardia, nonspecific ST and T wave abnormality, no significant change beside tachycardia when compared to previous EKG done on zero 11/17 2019 EKG read: Interp. by me - X-Ray X-Ray #1 Interpretation: Interp. by me X-ray Comments: no acute cardiopulmonary findings. - Progress/Reassessment Chief Complaint: GI Bleed Progress Note-Subjective: 02/10/20 12:[address] Mohan admitting physician, patient hgb of 2.8 from acute blood loss anemia and acute renal failure with creatinine of 2.85 with normal creatinine at baseline. He accepted admission, I informed him that I ordered 4 units of PRBCs, I transfused 2 units PRBCs anshul and kept 2 on hold. He is in agreement with this plan and will see patient on the floor. I also contacted Dr Chance who sent patient to the ED, to inform him of patient condition. He appreciated the call and he will see patient after discharge for follow, and he agreed to have standard wound care of her post surgical incision during inpatient. Patient low hemoglobin is partially secondary to her chronic mycrocytic anemia, partially post surgical and partially due to her chronic hemorrhoids bleeding. We don't have GI here is [facility], I offered Dr Mohan to consult General Surgery from the ED and he said he will take care of it on the floor. Departure Clinical Impression: Anemia, Microcytic anemia, Acute renal failure, Hyperkalemia, Dehydration, Elevated lactic acid level - Departure Disposition: Still a patient Condition: Serious
[2020-02-10 12:29] LABS: Mean Cell Volume 80.3 fl (78-100); Mean Corpuscular Hemoglobin 20.4 pg (27-31); Mean Corpuscular Hgb Conc 25.5 g/dl (32-36); Mean Platelet Volume 8.8 fl (8-12.5); Platelet Count 570 K/mm3 (150-450); Red Blood Count 1.37 M/mm3 (4.2-5.4); Red Cell Distribution Width 27.7 % (11.5-14.0); White Blood Count 25.5 K/mm3 (4.0-10.5)
[2020-02-10 12:34] LABS: Prothrombin Time (Patient) 13.4 Seconds (9.1-10.7)
[2020-02-10 12:38] LABS: Albumin * 1.9 gm/dl (3.4-5.0); Anion Gap 28.6 mmol/L (6.8-13.8); BUN/Creatinine Ratio 8.8 (9.0-21.6); Bilirubin, Total 0.5 mg/dL (0.0-1.1); Ca. Corrected For Albumin 9.8 mg/dL (8.4-10.2); Calcium * 8.4 mg/dL (7.9-10.9); Carbon Dioxide 12.4 mmol/L (24-32.6); Total Protein 6.8 gm/dL (6.2-8.2)
[2020-02-10 12:39] LABS: INR 1.37 INR (0.92-1.08); Partial Thrombolplastin Time 22.4 Seconds (24-32)
[2020-02-10 12:40] LABS: Hemoglobin 2.8 gm/dL (12.5-16.0)
[2020-02-10 12:42] LABS: Total Cells Counted 100
[2020-02-10 12:58] LABS: Anisocytosis 3+; Band 11 % (0-2.0); Eosinophil 1 % (0-3); Immature Granulocyte 4 (0-1); Lymphocyte 9 % (20-51); Monocyte 2 % (0-9); Neutrophil 73 % (42-75); Neutrophil # 18.6 K/mm3 (1.3-6.0)
[2020-02-10 12:59] LABS: Hypochromia 2+; Microcytosis 2+
[2020-02-10 13:01] LABS: Macrocytosis Trace; Platelet Estimate Increased (NORMAL); Polychromasia Trace
[2020-02-10] MEDS: ACETAMINOPHEN 500 MG TABLET PO PRN (16:33)
--- NOTE | 2020-02-10 18:28 | HP ---
Chief Complaint - Chief Complaint Date of Service: 02/10/20 Time of Service: 18:12 Chief Complaint: Shortness of breath, fatigue History of Present Illness: Carmen is a 54 yo female presenting to orthopedics clinic for follow up of left total hip repair. She had this surgery done on 12/19/19. She reports surgery went well. She reports chronic iron deficiency anemia. Her hemoglobin was near 7 at discharge, but she reports that is not uncommon for her hemoglobin. Over the last week she has been more fatigued, short of breath, and almost passed out driving today. She was sent to the ER from [facility] and was found to have a hemoglobin of 2.8. She reports that since being placed on iron and pain medications she has had constipation and hemorrhoids. She has had some bleeding from her hemorrhoids with bright red blood with stools and some clots. She reports no bowel movement for the past two days. Medical History (Last Reviewed 02/10/20 @ 14:09 by Shannen Sargent RN) Left hip pain Onset Date: ~04/2019 PTSD (post-traumatic stress disorder) Onset Date: ~2009 after her son Hypertension Onset Date: ~2018 Surgical History: Surgical History (Last Reviewed 02/10/20 @ 14:09 by Shannen Sargent RN) H/O total hip arthroplasty Onset Date: ~05/2016 right: Dr. Chance, 12/19/19 left hip: H/O tubal ligation Onset Date: ~1989 History of appendectomy Onset Date: ~1979 Family History: Family History (Last Reviewed 02/10/20 @ 14:09 by Shannen Sargent RN) Sister History of breast cancer Grandmother , maternal Ovarian cancer Uterine cancer Mother Rheumatoid arthritis Father Alive and well Social History: (Last Reviewed 02/10/20 @ 14:09 by Shannen Sargent RN) Social History: Marital status: seperated current occupational status: employed current occupation: Paraprofessional Highest education level completed: some college, no degree Service: No Tobacco: Smoking Status: Never smoker Alcohol: alcohol intake: current details: rare Substance Use: substance use type: marijuana Dietary Habits: caffeine: Yes Type: carbonated beverages, coffee, tea Review Of Systems (GEN) - Review of Systems Generalized/Overall Review: Present: Weakness. Absent: Chills, Fever EENTM: Present: No Symptoms Reported Respiratory: Present: Shortness of Breath. Absent: Cough Cardiac: Present: Chest Pain, Edema. Absent: Palpitations Abdominal: Present: Constipation, Bright blood from rectum. Absent: Nausea, Vomiting, Hematemesis, Abdominal Pain, Diarrhea, Melena Genitourinary: Present: No Symptoms Reported Musculoskeletal: Present: Joint Pain Neurological: Present: No Symptoms Reported Skin: Present: No Symptoms Reported Immunizations: IMMUNIZATION HX Immunizations Up to Date Yes History of Influenza Vaccine No Hx Pneumococcal Vaccination No Allergies/Adverse Reactions: Allergies Allergy/AdvReac Type Severity Reaction Status Date / Time cephalexin monohydrate Allergy Severe swelling Verified 02/10/20 11:50 [From Keflex] to face and throat Sulfa (Sulfonamide Allergy Severe swelling Verified 02/10/20 11:50 Antibiotics) to face and throat tetracycline Allergy Severe swelling Verified 02/10/20 11:50 to face and throat Home Medications: HOME MEDICATIONS Ferrous Sulfate 325 mg PO BID #60 tablet. 01/16/20 [Last Taken Unknown] Diclofenac Sodium [Voltaren] 50 mg PO HS 02/10/20 [Last Taken Unknown] Duloxetine HCl 60 mg PO DAILY 02/10/20 [Last Taken Unknown] Furosemide [Lasix] 40 mg PO DAILY 02/10/20 [Last Taken Unknown] Lisinopril [Prinivil] 10 mg PO DAILY 02/10/20 [Last Taken Unknown] Exam - Exam Vital Signs: Vital Signs - Last Taken Temp 36.7 C 02/10/20 18:00 Pulse 95 02/10/20 18:00 Resp 23 H 02/10/20 18:00 BP 127/74 02/10/20 18:00 Pulse Ox 96 02/10/20 17:51 Constitutional: Present: Alert, Oriented x3, Cooperative ENT Exam: Present: hearing grossly normal Eye Exam: bilateral eye: normal inspection Respiratory: Present: lungs clear, normal breath sounds, respiratory distress - mild tachypnea Cardiovascular/Chest: Present: tachycardia, chest tender - sternum, other - 2+ systolic murmur Peripheral Pulses: radial (R): 2+, radial (L): 2+ Abdomen: Present: Normal bowel sounds, soft, nontender Extremity: Present: lower extremity edema - 2+ Skin Exam: Present: normal color, warm/dry, no cyanosis Appearance: Present: appropriate appearance, appropriate insight Eye contact: Present: cooperative, good eye contact, normal speech Thoughts: Present: normal thought pattern, no apparent hallucination Diagnostic Studies: Abnormal Lab Results 02/10/20 02/10/20 02/10/20 Range/Units 12:00 12:00 12:00 WBC 25.5 H (4.0-10.5) K/mm3 RBC 1.37 L (4.2-5.4) M/mm3 Hgb 2.8 L* D (12.5-16.0) gm/dL Hct 11.0 L* D (37.0-47.0) % MCH 20.4 L (27-31) pg MCHC 25.5 L (32-36) g/dl RDW 27.7 H (11.5-14.0) % Plt Count 570 H (150-450) K/mm3 Band Neuts % (Manual) 11 H (0-2.0) % Lymphocytes % (Manual) 9 L (20-51) % Immature Granulocytes 4 H (0-1) Neutrophils # (Manual) 18.6 H (1.3-6.0) K/mm3 Platelet Estimate Increased H (NORMAL) PT (9.1-10.7) Seconds INR (Anticoag Therapy) (0.92-1.08) INR PTT ([place]) (24-32) Seconds Potassium 5.0 H D (3.4-4.6) mmol/L Chloride 96 L (97-106) mmol/L Carbon Dioxide 12.4 L (24-32.6) mmol/L Anion Gap 28.6 H (6.8-13.8) mmol/L BUN 25 H D (3-23) mg/dL Creatinine 2.85 H D (0.4-1.4) mg/dL Est GFR (Non-Af Amer) 18 L D (60-130) mL/min BUN/Creatinine Ratio 8.8 L (9.0-21.6) Lactic Acid, Venous (0.4-2.0) mmol/L ALT 14 L (19-67) U/L B-Natriuretic Peptide 7324 H (5-150) pg/mL Albumin 1.9 L (3.4-5.0) gm/dl Crossmatch See Detail 02/10/20 02/10/20 02/10/20 Range/Units 12:00 12:00 15:56 WBC (4.0-10.5) K/mm3 RBC (4.2-5.4) M/mm3 Hgb (12.5-16.0) gm/dL Hct (37.0-47.0) % MCH (27-31) pg MCHC (32-36) g/dl RDW (11.5-14.0) % Plt Count (150-450) K/mm3 Band Neuts % (Manual) (0-2.0) % Lymphocytes % (Manual) (20-51) % Immature Granulocytes (0-1) Neutrophils # (Manual) (1.3-6.0) K/mm3 Platelet Estimate (NORMAL) PT 13.4 H (9.1-10.7) Seconds INR (Anticoag Therapy) 1.37 H (0.92-1.08) INR PTT ([place]) 22.4 L (24-32) Seconds Potassium (3.4-4.6) mmol/L Chloride (97-106) mmol/L Carbon Dioxide (24-32.6) mmol/L Anion Gap (6.8-13.8) mmol/L BUN (3-23) mg/dL Creatinine (0.4-1.4) mg/dL Est GFR (Non-Af Amer) (60-130) mL/min BUN/Creatinine Ratio (9.0-21.6) Lactic Acid, Venous 10.5 H* 9.6 H* (0.4-2.0) mmol/L ALT (19-67) U/L B-Natriuretic Peptide (5-150) pg/mL Albumin (3.4-5.0) gm/dl Crossmatch Laboratory Results WBC 25.5 K/mm3 (4.0-10.5) H 02/10/20 12:00 RBC 1.37 M/mm3 (4.2-5.4) L 02/10/20 12:00 Hgb 2.8 gm/dL (12.5-16.0) L* D 02/10/20 12:00 Hct 11.0 % (37.0-47.0) L* D 02/10/20 12:00 MCV 80.3 fl (78-100) 02/10/20 12:00 MCH 20.4 pg (27-31) L 02/10/20 12:00 MCHC 25.5 g/dl (32-36) L 02/10/20 12:00 RDW 27.7 % (11.5-14.0) H 02/10/20 12:00 Plt Count 570 K/mm3 (150-450) H 02/10/20 12:00 MPV 8.8 fl (8-12.5) 02/10/20 12:00 Neutrophils % (Manual) 73 % (42-75) 02/10/20 12:00 Band Neuts % (Manual) 11 % (0-2.0) H 02/10/20 12:00 Lymphocytes % (Manual) 9 % (20-51) L 02/10/20 12:00 Monocytes % (Manual) 2 % (0-9) 02/10/20 12:00 Eosinophils % (Manual) 1 % (0-3) 02/10/20 12:00 Immature Granulocytes 4 (0-1) H 02/10/20 12:00 Neutrophils # (Manual) 18.6 K/mm3 (1.3-6.0) H 02/10/20 12:00 Lymphocytes # (Manual) 2.3 k/mm3 (1.5-3.5) 02/10/20 12:00 Monocytes # (Manual) 0.5 k/mm3 (0.0-1.0) 02/10/20 12:00 Eosinophils # (Manual) 0.3 k/mm3 (0.0-0.7) 02/10/20 12:00 Platelet Estimate Increased (NORMAL) H 02/10/20 12:00 Polychromasia Trace 02/10/20 12:00 Hypochromasia 2+ 02/10/20 12:00 Anisocytosis 3+ 02/10/20 12:00 Microcytosis 2+ 02/10/20 12:00 Macrocytosis Trace 02/10/20 12:00 PT 13.4 Seconds (9.1-10.7) H 02/10/20 12:00 INR (Anticoag Therapy) 1.37 INR (0.92-1.08) H 02/10/20 12:00 PTT ([place]) 22.4 Seconds (24-32) L 02/10/20 12:00 Sodium 132 mmol/L (132-142) 02/10/20 12:00 Plasma Sodium 132 mmol/L (130-142) 02/10/20 12:00 Potassium 5.0 mmol/L (3.4-4.6) H D 02/10/20 12:00 Chloride 96 mmol/L (97-106) L 02/10/20 12:00 Carbon Dioxide 12.4 mmol/L (24-32.6) L 02/10/20 12:00 Anion Gap 28.6 mmol/L (6.8-13.8) H 02/10/20 12:00 BUN 25 mg/dL (3-23) H D 02/10/20 12:00 Creatinine 2.85 mg/dL (0.4-1.4) H D 02/10/20 12:00 Est GFR (Non-Af Amer) 18 mL/min (60-130) L D 02/10/20 12:00 BUN/Creatinine Ratio 8.8 (9.0-21.6) L 02/10/20 12:00 Random Glucose 104 mg/dL (70-110) 02/10/20 12:00 Lactic Acid, Venous 9.6 mmol/L (0.4-2.0) H* 02/10/20 15:56 Calcium 8.4 mg/dL (7.9-10.9) 02/10/20 12:00 Calcium Adj for Albumin 9.8 mg/dL (8.4-10.2) 02/10/20 12:00 Total Bilirubin 0.5 mg/dL (0.0-1.1) 02/10/20 12:00 AST 15 U/L (0-48) 02/10/20 12:00 ALT 14 U/L (19-67) L 02/10/20 12:00 Alkaline Phosphatase 115 U/L (50-170) 02/10/20 12:00 B-Natriuretic Peptide 7324 pg/mL (5-150) H 02/10/20 12:00 Total Protein 6.8 gm/dL (6.2-8.2) 02/10/20 12:00 Albumin 1.9 gm/dl (3.4-5.0) L 02/10/20 12:00 Blood Type O Positive 02/10/20 12:00 Antibody Screen Negative 02/10/20 12:00 Crossmatch See Detail 02/10/20 12:00 Assessment/Plan - Narrative Narrative: Carmen is a 54 yo female with profound acute blood loss anemia on chronic iron deficiency anemia secondary to lower GI bleed and less so to recent left total hip surgery. Her hemoglobin is 2.8 and she will be transfused 4 units of blood at this time and will be monitored on telemetry and monitor hemoglobin. She does not appear to be actively bleeding as she has not had a bowel movement for the last two days. They appear to be from lower GI source, likely hemorrhoid. Will give senna/colace and miralax for constipation. She has acute renal failure secondary to anemia. This should correct with blood transfusions. Will monitor renal function. Will admit to acute inpatient status. Due to the degree of anemia it will be >2 midnights to correct blood and monitor stability, as well as correct acute renal failure. - Assessment/Plan (1) Acute blood loss anemia Problem: Acute (2) Acute renal failure Problem: Acute (3) Lower GI bleed Problem: Acute (4) Constipation Problem: Acute (5) Status post left hip replacement Problem: Acute (6) Hypertension Problem: Chronic (7) Acute costochondritis Problem: Acute
[2020-02-10] MEDS: KETOROLAC TROMETHAMINE 30 MG/ML VIAL IV PRN (19:41)
[2020-02-10] MEDS: POLYETHYLENE GLYCOL 3350 17 GM PACKET PO SCH (19:41)
[2020-02-10] MEDS: SENNOSIDES/DOCUSATE SODIUM 1 TAB TABLET PO SCH (21:21)
[2020-02-10] MEDS ORDERED: FUROSEMIDE 10 MG/ML VIAL IV ONE (21:25)
[2020-02-11] MEDS: ACETAMINOPHEN 500 MG TABLET PO PRN (00:55)
[2020-02-11] MEDS: KETOROLAC TROMETHAMINE 30 MG/ML VIAL IV PRN (02:02)
[2020-02-11] MEDS: LISINOPRIL 10 MG TABLET PO SCH (08:35)
[2020-02-11] MEDS: POLYETHYLENE GLYCOL 3350 17 GM PACKET PO SCH (08:35)
[2020-02-11] MEDS: DULoxetine HCL 30 MG CAPSULE.SA PO SCH ×2 (08:35→08:41)
[2020-02-11 09:37] LABS: Mean Cell Volume 81.5 fl (78-100); Mean Corpuscular Hemoglobin 25.4 pg (27-31); Mean Corpuscular Hgb Conc 31.1 g/dl (32-36); Mean Platelet Volume 7.9 fl (8-12.5); Platelet Count 368 K/mm3 (150-450); Red Blood Count 2.76 M/mm3 (4.2-5.4); Red Cell Distribution Width 21.4 % (11.5-14.0); White Blood Count 20.7 K/mm3 (4.0-10.5)
[2020-02-11 10:05] LABS: Albumin * 1.8 gm/dl (3.4-5.0); Anion Gap 16.7 mmol/L (6.8-13.8); BUN/Creatinine Ratio 12.8 (9.0-21.6); Bilirubin, Total 0.5 mg/dL (0.0-1.1); Ca. Corrected For Albumin 9.6 mg/dL (8.4-10.2); Calcium * 8.2 mg/dL (7.9-10.9); Potassium 3.7 mmol/L (3.4-4.6); Total Protein 6.2 gm/dL (6.2-8.2)
[2020-02-11 10:07] LABS: Hematocrit 22.5 % (37.0-47.0)
[2020-02-11 10:08] LABS: Total Cells Counted 100
[2020-02-11 10:25] LABS: Band 6 % (0-2.0); Lymphocyte 8 % (20-51); Monocyte 6 % (0-9); Neutrophil 80 % (42-75); Neutrophil # 16.6 K/mm3 (1.3-6.0); Platelet Estimate Normal (NORMAL); RBC Morphology Normal (NORMAL)
[2020-02-11] MEDS ORDERED: VANCOMYCIN HCL 1 GM in DEXTROSE 5 % IN WATER 250 ML IV SCH ×2 (10:30)
[2020-02-11] MEDS: HYDROcodone/ACETAMINOPHEN 1 EACH TABLET PO PRN ×3 (10:55→20:49)
[2020-02-11] MEDS: VANCOMYCIN/WATER FOR INJ (PEG) 1 GM/200 ML BAG IV SCH (11:01)
--- NOTE | 2020-02-11 15:07 | PN ---
Subjective - Date and Time Seen Date: 02/11/20 Time: 15:04 Subjective Narrative: Ms. Prasad states that her fatigue is better. She continues to complain about some chest rib type pain. She states her hip is not terribly uncomfortable. She is getting her sixth unit of blood. She denies fevers or chills. Objective - Vitals Vitals: Last Vital Signs Temp 36.7 C 02/11/20 13:48 Pulse 89 02/11/20 13:48 Resp 18 02/11/20 13:48 BP 142/60 H 02/11/20 13:48 Pulse Ox 98 02/11/20 13:48 - Abnormal Lab Findings Abnormal Lab Findings: Abnormal Lab Results 02/10/20 02/10/20 02/11/20 Range/Units 12:00 15:56 08:32 WBC 20.7 H (4.0-10.5) K/mm3 RBC 2.76 L (4.2-5.4) M/mm3 Hgb 7.0 L* D (12.5-16.0) gm/dL Hct 22.5 L* D (37.0-47.0) % MCH 25.4 L (27-31) pg MCHC 31.1 L (32-36) g/dl RDW 21.4 H (11.5-14.0) % MPV 7.9 L (8-12.5) fl Neutrophils % (Manual) 80 H (42-75) % Band Neuts % (Manual) 6 H (0-2.0) % Lymphocytes % (Manual) 8 L (20-51) % Neutrophils # (Manual) 16.6 H (1.3-6.0) K/mm3 Monocytes # (Manual) 1.2 H (0.0-1.0) k/mm3 Carbon Dioxide (24-32.6) mmol/L Anion Gap (6.8-13.8) mmol/L BUN (3-23) mg/dL Creatinine (0.4-1.4) mg/dL Est GFR (Non-Af Amer) (60-130) mL/min Random Glucose (70-110) mg/dL Lactic Acid, Venous 9.6 H* (0.4-2.0) mmol/L ALT (19-67) U/L Albumin (3.4-5.0) gm/dl Crossmatch See Detail 02/11/20 Range/Units 08:32 WBC (4.0-10.5) K/mm3 RBC (4.2-5.4) M/mm3 Hgb (12.5-16.0) gm/dL Hct (37.0-47.0) % MCH (27-31) pg MCHC (32-36) g/dl RDW (11.5-14.0) % MPV (8-12.5) fl Neutrophils % (Manual) (42-75) % Band Neuts % (Manual) (0-2.0) % Lymphocytes % (Manual) (20-51) % Neutrophils # (Manual) (1.3-6.0) K/mm3 Monocytes # (Manual) (0.0-1.0) k/mm3 Carbon Dioxide 23.0 L (24-32.6) mmol/L Anion Gap 16.7 H (6.8-13.8) mmol/L BUN 24 H (3-23) mg/dL Creatinine 1.87 H D (0.4-1.4) mg/dL Est GFR (Non-Af Amer) 30 L D (60-130) mL/min Random Glucose 166 H D (70-110) mg/dL Lactic Acid, Venous (0.4-2.0) mmol/L ALT 13 L (19-67) U/L Albumin 1.8 L (3.4-5.0) gm/dl Crossmatch - Exam Exam Narrative: Left lower extremity: Surgical incision with central maceration and dehiscence over approximately 3 cm. There is some clear nonodorous thin drainage. This was cleansed and cultured today. She is neurovascular intact. She has minimal pain with hip range of motion. She has no significant erythema or calor about the incision. Assessment/Plan - Problems/Diagnosis (1) Status post left hip replacement Problem: Chronic Narrative: We reviewed with her anemia, bacteremia, and drainage that I would recommend surgical intervention. I would like her to get her anemia and bacteremia initially under control. A culture of her hip was taken today to direct antibiotics. The plan will be to perform irrigation debridement and closure of the wound in the operating room.
[2020-02-11] MEDS ORDERED: FAMOTIDINE 20 MG TABLET PO PRN (20:47)
[2020-02-11] MEDS: SACCHAROMYCES BOULARDII 250 MG CAPSULE PO SCH (20:48)
[2020-02-11] MEDS: SENNOSIDES/DOCUSATE SODIUM 1 TAB TABLET PO SCH (20:48)
[2020-02-11 21:55] LABS: Hemoglobin 9.1 gm/dL (12.5-16.0); Mean Cell Volume 86.7 fl (78-100); Mean Corpuscular Hemoglobin 26.3 pg (27-31); Mean Corpuscular Hgb Conc 30.3 g/dl (32-36); Mean Platelet Volume 8.5 fl (8-12.5); Platelet Count 374 K/mm3 (150-450); Red Blood Count 3.46 M/mm3 (4.2-5.4); Red Cell Distribution Width 20.9 % (11.5-14.0); White Blood Count 22.5 K/mm3 (4.0-10.5)
--- NOTE | 2020-02-11 22:10 | PN ---
Subjective - Date and Time Seen Date: 02/11/20 Time: 09:15 Subjective Narrative: Fatigue is better. Shortness of breath is better. Reports costochondritis in chest hurts. No fever or chills. Hgb up to 7 this morning. Micro reports gram + cocci in clusters growing in blood culture x 2 Objective - Vitals Vitals: Last Vital Signs Temp 36.9 C 02/11/20 20:36 Pulse 78 02/11/20 20:36 Resp 20 02/11/20 20:36 BP 145/76 H 02/11/20 20:36 Pulse Ox 94 02/11/20 20:36 - Abnormal Lab Findings Abnormal Lab Findings: Abnormal Lab Results 02/10/20 02/11/20 02/11/20 Range/Units 12:00 08:32 08:32 WBC 20.7 H (4.0-10.5) K/mm3 RBC 2.76 L (4.2-5.4) M/mm3 Hgb 7.0 L* D (12.5-16.0) gm/dL Hct 22.5 L* D (37.0-47.0) % MCH 25.4 L (27-31) pg MCHC 31.1 L (32-36) g/dl RDW 21.4 H (11.5-14.0) % MPV 7.9 L (8-12.5) fl Neutrophils % (Manual) 80 H (42-75) % Band Neuts % (Manual) 6 H (0-2.0) % Lymphocytes % (Manual) 8 L (20-51) % Neutrophils # (Manual) 16.6 H (1.3-6.0) K/mm3 Monocytes # (Manual) 1.2 H (0.0-1.0) k/mm3 Carbon Dioxide 23.0 L (24-32.6) mmol/L Anion Gap 16.7 H (6.8-13.8) mmol/L BUN 24 H (3-23) mg/dL Creatinine 1.87 H D (0.4-1.4) mg/dL Est GFR (Non-Af Amer) 30 L D (60-130) mL/min Random Glucose 166 H D (70-110) mg/dL ALT 13 L (19-67) U/L Albumin 1.8 L (3.4-5.0) gm/dl Crossmatch See Detail 02/11/20 Range/Units 21:50 WBC 22.5 H (4.0-10.5) K/mm3 RBC 3.46 L (4.2-5.4) M/mm3 Hgb 9.1 L (12.5-16.0) gm/dL Hct 30.0 L (37.0-47.0) % MCH 26.3 L (27-31) pg MCHC 30.3 L (32-36) g/dl RDW 20.9 H (11.5-14.0) % MPV (8-12.5) fl Neutrophils % (Manual) (42-75) % Band Neuts % (Manual) (0-2.0) % Lymphocytes % (Manual) (20-51) % Neutrophils # (Manual) (1.3-6.0) K/mm3 Monocytes # (Manual) (0.0-1.0) k/mm3 Carbon Dioxide (24-32.6) mmol/L Anion Gap (6.8-13.8) mmol/L BUN (3-23) mg/dL Creatinine (0.4-1.4) mg/dL Est GFR (Non-Af Amer) (60-130) mL/min Random Glucose (70-110) mg/dL ALT (19-67) U/L Albumin (3.4-5.0) gm/dl Crossmatch - Exam Constitutional: Present: Alert, Oriented x3, Cooperative ENT Exam: Present: hearing grossly normal Respiratory: Present: lungs clear, normal breath sounds, no respiratory distress Cardiovascular/Chest: Present: regular rate, rhythm, edema - 2+ Abdomen: Present: Normal bowel sounds, soft, nontender, nondistended Skin Exam: Present: other - Left hip incision with purulent drainage Appearance: Present: appropriate appearance, appropriate insight Eye contact: Present: cooperative, good eye contact, normal speech Thoughts: Present: normal thought pattern, no apparent hallucination Assessment/Plan Plan Narrative: Blood culture x 2 growing suspected staph species. Started on vancomycin today to cover MRSA. Discussed with ortho as the left hip incision may be the source. Ortho plans to take back to surgery for irrigation and debridement. Anemia is improved today up to 7 with 4 units, will give another 2 units and continue to monitor. Left hip does not appear to be bleeding, suspect from hemorrhoids and constipation. Constipation improved with stool softeners. - Problems/Diagnosis (1) Bacteremia Problem: Acute (2) Acute blood loss anemia Problem: Acute (3) Acute renal failure Problem: Acute (4) Lower GI bleed Problem: Acute (5) Constipation Problem: Acute (6) Status post left hip replacement Problem: Chronic (7) Hypertension Problem: Chronic (8) Acute costochondritis Problem: Acute
[2020-02-12] MEDS: HYDROcodone/ACETAMINOPHEN 1 EACH TABLET PO PRN ×4 (01:41→20:33)
[2020-02-12] MEDS: POLYETHYLENE GLYCOL 3350 17 GM PACKET PO SCH (08:38)
[2020-02-12] MEDS: SACCHAROMYCES BOULARDII 250 MG CAPSULE PO SCH ×2 (08:39→20:32)
[2020-02-12] MEDS: LISINOPRIL 10 MG TABLET PO SCH (08:39)
[2020-02-12] MEDS: DULoxetine HCL 30 MG CAPSULE.SA PO SCH ×2 (08:40→08:42)
[2020-02-12] MEDS: VANCOMYCIN/WATER FOR INJ (PEG) 1 GM/200 ML BAG IV SCH (10:29)
--- NOTE | 2020-02-12 11:00 | PN ---
Subjective - Date and Time Seen Date: 02/12/20 Time: 10:58 Subjective Narrative: Ms. Prasad states that her fatigue is better. She still has some thoracic type pain. She states her hip pain is stable. She states her hip is not terribly uncomfortable. She denies fevers or chills. Objective - Vitals Vitals: Last Vital Signs Temp 37.2 C 02/12/20 07:00 Pulse 87 02/12/20 08:39 Resp 15 02/12/20 07:00 BP 123/76 02/12/20 08:39 Pulse Ox 94 02/12/20 07:00 - Abnormal Lab Findings Abnormal Lab Findings: Abnormal Lab Results 02/10/20 02/11/20 02/12/20 Range/Units 12:00 21:50 06:55 WBC 22.5 H (4.0-10.5) K/mm3 RBC 3.46 L (4.2-5.4) M/mm3 Hgb 9.1 L (12.5-16.0) gm/dL Hct 30.0 L (37.0-47.0) % MCH 26.3 L (27-31) pg MCHC 30.3 L (32-36) g/dl RDW 20.9 H (11.5-14.0) % ESR 79 H (0-15) mm/hr Crossmatch See Detail - Exam Exam Narrative: Left lower extremity: Serous drainage on her hip, no malodor or thick purulent material, neurovascular intact, exam otherwise stable, no significant erythema Assessment/Plan - Problems/Diagnosis (1) Status post left hip replacement Problem: Chronic Narrative: Plan is to undergo surgical irrigation debridement and closure of her wound tomorrow. At this point her cultures are still pending but negative for gross bacteria. Should be n.p.o. after midnight. If she does well tomorrow she can go home soon if she is ready postoperatively.
[2020-02-12] MEDS: SENNOSIDES/DOCUSATE SODIUM 1 TAB TABLET PO SCH (20:33)
--- NOTE | 2020-02-12 21:38 | PN ---
Subjective - Date and Time Seen Date: 02/12/20 Time: 10:45 Subjective Narrative: Carmen reports feeling better today. Hgb up to 9.1. No fever, chills, nausea, or vomiting. She reports sternum pain still present but better. Having dark blood in stools. Objective - Vitals Vitals: Last Vital Signs Temp 37.3 C 02/12/20 17:35 Pulse 71 02/12/20 17:35 Resp 22 H 02/12/20 17:35 BP 149/75 H 02/12/20 17:35 Pulse Ox 97 02/12/20 17:35 - Abnormal Lab Findings Abnormal Lab Findings: Abnormal Lab Results 02/11/20 02/12/20 Range/Units 21:50 06:55 WBC 22.5 H (4.0-10.5) K/mm3 RBC 3.46 L (4.2-5.4) M/mm3 Hgb 9.1 L (12.5-16.0) gm/dL Hct 30.0 L (37.0-47.0) % MCH 26.3 L (27-31) pg MCHC 30.3 L (32-36) g/dl RDW 20.9 H (11.5-14.0) % ESR 79 H (0-15) mm/hr - Exam Constitutional: Present: Alert, Oriented x3, Cooperative ENT Exam: Present: hearing grossly normal Respiratory: Present: lungs clear, normal breath sounds Cardiovascular/Chest: Present: regular rate, rhythm, no murmur Abdomen: Present: Normal bowel sounds, soft, nontender, nondistended Appearance: Present: appropriate appearance, appropriate insight Eye contact: Present: cooperative, good eye contact, normal speech Assessment/Plan Plan Narrative: Staph in blood cultures x 2, on vanco. Ortho consulted with plan to surgical debride and irrigate left hip incision. Hemoglobin improved to 9.1. Patient appears clinically to be feeling better. Dark older appearing blood in stools indicates likely no active bleeding. Will continue to monitor hemoglobin. - Problems/Diagnosis (1) Bacteremia Problem: Acute (2) Acute blood loss anemia Problem: Acute (3) Acute renal failure Problem: Acute (4) Lower GI bleed Problem: Acute (5) Constipation Problem: Acute (6) Status post left hip replacement Problem: Chronic (7) Hypertension Problem: Chronic (8) Acute costochondritis Problem: Acute
[2020-02-13] MEDS: HYDROcodone/ACETAMINOPHEN 1 EACH TABLET PO PRN ×5 (03:13→23:53)
[2020-02-13] MEDS ORDERED: CLINDAMYCIN IN 0.9 % SOD CHLOR 900 MG/50 ML BAG IV PRN (06:00)
[2020-02-13 06:20] LABS: Mean Cell Volume 87.3 fl (78-100); Mean Corpuscular Hemoglobin 26.2 pg (27-31); Mean Platelet Volume 8.5 fl (8-12.5); NRBC# 0.1 k/mm3 (0-1); Neutrophil # 11.1 K/mm3 (1.3-6.0); Neutrophil % 67.6 % (42-75.0); Platelet Count 321 K/mm3 (150-450); Red Blood Count 2.37 M/mm3 (4.2-5.4); Red Cell Distribution Width 21.2 % (11.5-14.0); White Blood Count 16.4 K/mm3 (4.0-10.5)
[2020-02-13 06:30] LABS: Hemoglobin 6.2 gm/dL (12.5-16.0)
[2020-02-13 06:31] LABS: Hematocrit 20.7 % (37.0-47.0)
[2020-02-13] MEDS ORDERED: PANTOPRAZOLE SODIUM 80 MG in NORMAL SALINE 100 ML IV ONE (06:32)
[2020-02-13 06:33] LABS: Albumin * 1.3 gm/dl (3.4-5.0); Anion Gap 11.1 mmol/L (6.8-13.8); BUN/Creatinine Ratio 25.9 (9.0-21.6); Bilirubin, Total 0.4 mg/dL (0.0-1.1); Ca. Corrected For Albumin 9.5 mg/dL (8.4-10.2); Calcium * 7.7 mg/dL (7.9-10.9); Carbon Dioxide 25.9 mmol/L (24-32.6); Total Protein 5.2 gm/dL (6.2-8.2)
--- NOTE | 2020-02-13 08:52 | ANES ---
Anesthesia Pre Procedure Eval Vitals/Labs: Last Vital Signs Temp 37.2 C 02/13/20 06:35 Pulse 105 H 02/13/20 06:35 Resp 22 H 02/13/20 06:35 BP 141/82 H 02/13/20 06:35 Pulse Ox 98 02/13/20 06:35 HOME MEDICATIONS Ferrous Sulfate 325 mg PO BID #60 tablet. 01/16/20 [Last Taken Unknown] Diclofenac Sodium [Voltaren] 50 mg PO HS 02/10/20 [Last Taken Unknown] Duloxetine HCl 60 mg PO DAILY 02/10/20 [Last Taken Unknown] Furosemide [Lasix] 40 mg PO DAILY 02/10/20 [Last Taken Unknown] Lisinopril [Prinivil] 10 mg PO DAILY 02/10/20 [Last Taken Unknown] Allergies/Adverse Reactions: Allergies Allergy/AdvReac Type Severity Reaction Status Date / Time cephalexin monohydrate Allergy Severe swelling Verified 02/10/20 11:50 [From Keflex] to face and throat Sulfa (Sulfonamide Allergy Severe swelling Verified 02/10/20 11:50 Antibiotics) to face and throat tetracycline Allergy Severe swelling Verified 02/10/20 11:50 to face and throat - Planned Procedure Planned Procedure: I and D lt hip Medication List Reviewed:: Yes Allergies Verified: Yes Medical History (Last Reviewed 02/13/20 @ 08:50 by Saroj Tolbert CRNA) Left hip pain Onset Date: ~04/2019 PTSD (post-traumatic stress disorder) Onset Date: ~2009 after her son Hypertension Onset Date: ~2018 Surgical History (Last Reviewed 02/13/20 @ 08:50 by Saroj Tolbert CRNA) H/O total hip arthroplasty Onset Date: ~05/2016 right: Dr. Chance, 12/19/19 left hip: H/O tubal ligation Onset Date: ~1989 History of appendectomy Onset Date: ~1979 Family History (Last Reviewed 02/13/20 @ 08:50 by Saroj Tolbert CRNA) Sister History of breast cancer Grandmother , maternal Ovarian cancer Uterine cancer Mother Rheumatoid arthritis Father Alive and well - Family Anesthesia History Family History:: no untoward family reactions to anesthesia - Airway/Neck/Teeth Within Normal Limits:: Yes Teeth Condition: intact Neck Exam: full range of motion Mallampatti Score: 2 Thyromental (T-M) distance: > 6 cm Mandibulo Hyoid distance: > 3 cm - Respiratory Respiratory Physical: lungs clear Smoking Status: Never smoker Sleep Apnea currently treated: No Sleep Apnea by current assessment: No - Cardiovascular Cardiac History: hypertension Tolerate Activity: Fair Heart Sounds: S1 & S2, Regular - Gastrointestinal NPO since: MN - Anesthesia Assessment and Plan ASA Class: PS, III Anesthesia Type Plan: General LMA - possible general ET depending on position poss MAC
[2020-02-13] MEDS: SACCHAROMYCES BOULARDII 250 MG CAPSULE PO SCH ×2 (09:06→20:19)
[2020-02-13] MEDS: POLYETHYLENE GLYCOL 3350 17 GM PACKET PO SCH (09:06)
[2020-02-13] MEDS: LISINOPRIL 10 MG TABLET PO SCH (09:06)
[2020-02-13] MEDS: DULoxetine HCL 30 MG CAPSULE.SA PO SCH (09:07)
--- NOTE | 2020-02-13 09:41 | PREOP NOTE ---
Preoperative Progress Note - Preoperative Changes Changes to Preop Condition?: No Changes
[2020-02-13] MEDS: CLINDAMYCIN IN 0.9 % SOD CHLOR 600 MG/50 ML BAG IV SCH ×2 (09:44→16:09)
[2020-02-13] MEDS ORDERED: LIDOCAINE HCL 20 ML VIAL ONE (13:38)
[2020-02-13] MEDS ORDERED: PROPOFOL VIAL IV ONE (13:39)
[2020-02-13] MEDS ORDERED: fentaNYL CITRATE/PF 50 MCG/ML AMPUL ONE (13:39)
[2020-02-13] MEDS ORDERED: ONDANSETRON HCL/PF 2 MG/ML VIAL ONE (13:39)
[2020-02-13] MEDS ORDERED: VANCOMYCIN HCL 1 GM VIAL TP ONE (15:23)
[2020-02-13] MEDS ORDERED: diphenhydrAMINE HCL 50 MG/ML VIAL IV PRN (15:41)
[2020-02-13] MEDS ORDERED: ONDANSETRON HCL/PF 2 MG/ML VIAL IV PRN (15:41)
[2020-02-13] MEDS ORDERED: MAGNESIUM HYDROXIDE 30 ML UDC PO PRN (15:41)
[2020-02-13] MEDS ORDERED: MAG HYDROX/ALUMINUM HYD/SIMETH 30 ML UDC PO PRN (15:41)
[2020-02-13] MEDS ORDERED: ZOLPIDEM TARTRATE 5 MG TABLET PO PRN (15:41)
--- NOTE | 2020-02-13 15:41 | OR ---
Operative Report - Dictated Report Narrative: DATE OF PROCEDURE: 02/13/2020 PHYSICIAN: Jonathan Chance MD ICE CARVER: Virgil Aguilar PA-C PREOPERATIVE DIAGNOSIS: Wound dehiscence left total hip arthroplasty POSTOPERATIVE DIAGNOSES: Wound dehiscence left total hip arthroplasty OPERATION AND PROCEDURES: Irrigation and debridement with revision of left hip wound 10 cm ESTIMATED BLOOD LOSS: 50 mL SPECIMENS: Culture x2 to pathology. TOURNIQUET TIME: None ANESTHESIA: General COMPLICATIONS: None. DRAINS: Medium Hemovac INDICATIONS FOR PROCEDURE: Mrs. Prasad is a 54-year-old female who previously underwent a left total hip arthroplasty. She developed significant acute on chronic postoperative anemia secondary to bleeding hemorrhoids and suspected gastric bleed. She was admitted to the hospital and found to be septic with regards to her blood. She had a 2 cm area of wound dehiscence over her lateral aspect of the hip draining serous type fluid. She received over 6 units of blood in order to address her anemia. She had no gross signs of infection at the hip however she had persistent drainage and wound dehiscence. Secondary to the risk associated with this persistent drainage as well as out of concern for possible infection we discussed the plan for irrigation debridement and closure of wounds. The risks, benefits, and alternatives were discussed including the risk of bleeding, infection, nerve/tendon/blood vessel injury, persistent pain, recurrence, need for additional procedures, and she wished to proceed. Consent was obtained in the clinic. DESCRIPTION OF PROCEDURE: After marking the correct extremity in the preoperative holding area, the patient was taken to the operating room. A timeout was performed. IV antibiotics with clindamycin was administered prior to procedure. A general anesthetic was induced. She was then bumped into a semilateral position. The hip was prepped and draped in a standard sterile fashion. There was approximately 2 to 3 cm area of wound dehiscence draining thin serous type fluid. This skin as well as the skin proximal to distal were excised over a course of approximately 10 cm in order to remove the draining sinus tract. This communicated down to the deep fat. The fascia was visualized and noted to be intact and well-healed. There is no expression of any fluid with hip range of motion or manipulation and palpation of the fascia. The fluid collection pocket was thoroughly debrided using a Aguirre, laps, and a scalpel excising fat and subcutaneous tissue. We then passed 6 L of irrigant through the wound. Cultures were obtained pre and post irrigation. Based on sensitivities of the prior cultures 1 g of powdered vancomycin was placed into the abscess pocket. A medium Hemovac drain was placed deep exiting anteriorly and sutured to the skin. Once was felt that we had thoroughly irrigated and debrided this area, the deep tissue was closed with 0 PDS suture, the subcutaneous tissue with 2-0 PDS, the subcutaneous skin with 3-0 Monocryl and the skin with 3-0 nylon interrupted. Xeroform 4 x 4 ABD and tape were applied. All sponge, needle, and instrument counts were correct prior to closing the wounds.
--- NOTE | 2020-02-13 15:49 | ANES ---
Post Anesthesia Discharge - Transfer of Care Transfer of Care handoff given to nurse: Yes - Discharge from PACU Discharge from PACU when meets criteria: Yes - Discharge to ASU Discharge to ASU-no complications/pt stable: Yes
--- NOTE | 2020-02-13 16:01 | ANES ---
Post Anesthesia Assessment - Vital Signs Vitals: Last Vital Signs Temp 37.9 C 02/13/20 16:00 Pulse 79 02/13/20 16:00 Resp 16 02/13/20 16:00 BP 92/47 02/13/20 16:00 Pulse Ox 98 02/13/20 16:00 Airway Patency: Normal - Mental Status Level Of Consciousness: Awake - Pain Level Pain Score: 8 - N/V Assessment Nausea/Vomiting Presence: None Dehydration:: No
[2020-02-13] MEDS: KETOROLAC TROMETHAMINE 30 MG/ML VIAL IV PRN (16:35)
[2020-02-13] MEDS: MORPHINE SULFATE 2 MG/ML DISP.SYRIN IV PRN ×3 (17:34→23:02)
[2020-02-13] MEDS: SENNOSIDES/DOCUSATE SODIUM 1 TAB TABLET PO SCH (20:18)
[2020-02-13 20:40] LABS: Mean Cell Volume 86.6 fl (78-100); Mean Corpuscular Hemoglobin 26.8 pg (27-31); Mean Corpuscular Hgb Conc 30.9 g/dl (32-36); Mean Platelet Volume 8.3 fl (8-12.5); Platelet Count 260 K/mm3 (150-450); Red Blood Count 2.69 M/mm3 (4.2-5.4); Red Cell Distribution Width 18.9 % (11.5-14.0); White Blood Count 16.1 K/mm3 (4.0-10.5)
[2020-02-13 20:53] LABS: Hematocrit 23.3 % (37.0-47.0); Hemoglobin 7.2 gm/dL (12.5-16.0)
--- NOTE | 2020-02-13 23:08 | PN ---
Subjective - Date and Time Seen Date: 02/13/20 Time: 08:00 Subjective Narrative: Carmen reports having maroon colored stool over night. No fever, chills, nausea, or vomiting. Hgb down to 6 today. Ortho to clean out left hip incision today. Objective - Vitals Vitals: Last Vital Signs Temp 36.9 C 02/13/20 20:53 Pulse 75 02/13/20 22:14 Resp 16 02/13/20 20:53 BP 121/61 02/13/20 20:53 Pulse Ox 96 02/13/20 22:14 - Abnormal Lab Findings Abnormal Lab Findings: Abnormal Lab Results 02/10/20 02/13/20 02/13/20 Range/Units 12:00 06:15 06:15 WBC 16.4 H D (4.0-10.5) K/mm3 RBC 2.37 L (4.2-5.4) M/mm3 Hgb 6.2 L* D (12.5-16.0) gm/dL Hct 20.7 L* D (37.0-47.0) % MCH 26.2 L (27-31) pg MCHC 30.0 L (32-36) g/dl RDW 21.2 H (11.5-14.0) % Immature Gran % (Auto) 6.80 H (0.001-0.429) % Immature Gran # (Auto) 1.12 H (0.000-0.0310) K/mm3 Lymphocytes % 16.5 L (20-51) % Neutrophils # 11.1 H (1.3-6.0) K/mm3 Monocytes # 1.4 H (0.0-1.0) k/mm3 BUN/Creatinine Ratio 25.9 H (9.0-21.6) Random Glucose 116 H D (70-110) mg/dL Calcium 7.7 L (7.9-10.9) mg/dL ALT 13 L (19-67) U/L Total Protein 5.2 L (6.2-8.2) gm/dL Albumin 1.3 L (3.4-5.0) gm/dl Stool Occult Blood Crossmatch See Detail 02/13/20 02/13/20 Range/Units 08:34 20:35 WBC 16.1 H (4.0-10.5) K/mm3 RBC 2.69 L (4.2-5.4) M/mm3 Hgb 7.2 L* (12.5-16.0) gm/dL Hct 23.3 L* (37.0-47.0) % MCH 26.8 L (27-31) pg MCHC 30.9 L (32-36) g/dl RDW 18.9 H (11.5-14.0) % Immature Gran % (Auto) (0.001-0.429) % Immature Gran # (Auto) (0.000-0.0310) K/mm3 Lymphocytes % (20-51) % Neutrophils # (1.3-6.0) K/mm3 Monocytes # (0.0-1.0) k/mm3 BUN/Creatinine Ratio (9.0-21.6) Random Glucose (70-110) mg/dL Calcium (7.9-10.9) mg/dL ALT (19-67) U/L Total Protein (6.2-8.2) gm/dL Albumin (3.4-5.0) gm/dl Stool Occult Blood Positive H Crossmatch - Exam Constitutional: Present: Alert, Oriented x3, Cooperative ENT Exam: Present: hearing grossly normal Respiratory: Present: lungs clear, normal breath sounds, no respiratory distress Cardiovascular/Chest: Present: regular rate, rhythm, no murmur Abdomen: Present: Normal bowel sounds, soft, nontender, nondistended Skin Exam: Present: normal color, warm/dry, no cyanosis Appearance: Present: appropriate appearance, appropriate insight Assessment/Plan Plan Narrative: Staph bacteremia, change antibiotics to clinda, stop vanco. Ortho to surgically clean out left hip incision. Transfusion of 2 more units of blood as hgb was down to 6 today. That would be a total of 8 units of blood transfused, due to the significance of this amount will transfuse 2 units of ffp for additional factors. Will get GI nuclear bleeding scan today. This showed no active bleeding. Ok to eat. Hgb should stabilize and be able to discharge to home once this occurs. There is no evidence of sepsis, only staph bacteremia. - Problems/Diagnosis (1) Bacteremia Problem: Acute (2) Acute blood loss anemia Problem: Acute (3) Acute renal failure Problem: Acute (4) Lower GI bleed Problem: Acute (5) Constipation Problem: Acute (6) Status post left hip replacement Problem: Chronic (7) Hypertension Problem: Chronic (8) Acute costochondritis Problem: Acute
[2020-02-14] MEDS: CLINDAMYCIN IN 0.9 % SOD CHLOR 600 MG/50 ML BAG IV SCH ×3 (00:58→16:35)
[2020-02-14] MEDS: MORPHINE SULFATE 2 MG/ML DISP.SYRIN IV PRN ×3 (04:43→18:03)
[2020-02-14] MEDS ORDERED: RINGER'S SOLUTION,LACTATED 1,000 ML IV PRN (06:00)
[2020-02-14] MEDS: HYDROcodone/ACETAMINOPHEN 1 EACH TABLET PO PRN ×5 (06:14→22:38)
[2020-02-14 06:34] LABS: Mean Cell Volume 87.2 fl (78-100); Mean Corpuscular Hemoglobin 26.7 pg (27-31); Mean Corpuscular Hgb Conc 30.7 g/dl (32-36); Mean Platelet Volume 8.6 fl (8-12.5); Platelet Count 282 K/mm3 (150-450); Red Blood Count 2.43 M/mm3 (4.2-5.4); Red Cell Distribution Width 19.4 % (11.5-14.0)
[2020-02-14 06:49] LABS: Albumin * 1.6 gm/dl (3.4-5.0); Anion Gap 12.6 mmol/L (6.8-13.8); Bilirubin, Total 0.5 mg/dL (0.0-1.1); Ca. Corrected For Albumin 9.3 mg/dL (8.4-10.2); Calcium * 7.7 mg/dL (7.9-10.9); Carbon Dioxide 24.4 mmol/L (24-32.6); Total Protein 5.7 gm/dL (6.2-8.2)
[2020-02-14 07:11] LABS: Hemoglobin 6.5 gm/dL (12.5-16.0)
[2020-02-14 07:12] LABS: Hematocrit 21.2 % (37.0-47.0); Total Cells Counted 100
[2020-02-14 07:44] LABS: Band 3 % (0-2.0); Lymphocyte 20 % (20-51); Monocyte 9 % (0-9); Neutrophil 68 % (42-75); Neutrophil # 9.5 K/mm3 (1.3-6.0); Platelet Estimate Normal (NORMAL); RBC Morphology Normal (NORMAL)
[2020-02-14] MEDS: POLYETHYLENE GLYCOL 3350 17 GM PACKET PO SCH (09:20)
[2020-02-14] MEDS: SACCHAROMYCES BOULARDII 250 MG CAPSULE PO SCH ×2 (10:04→20:13)
[2020-02-14] MEDS: LISINOPRIL 10 MG TABLET PO SCH (10:04)
[2020-02-14] MEDS ORDERED: SODIUM, POTASSIUM,MAG SULFATES 1 KIT KIT PO ONE (12:27)
--- NOTE | 2020-02-14 12:35 | CONS ---
[facility] - General Date of Service: 02/14/20 Narrative: The patient was admitted with severe anemia. She has had blood transfusions, however remains anemic Source: patient, RN/MD, RN notes reviewed, old records Exam Limitations: no limitations - History of Present Illness Initial Comments: Patient is a 54-year-old female who underwent elective left total hip arthroplasty on 12/19/2019. Postoperatively her hemoglobin ranged around 7.1 g. When she presented for an orthopedic visit on 02/10/2020 she was noted to be extremely short of breath and sent to the ER. Her hemoglobin there was found to be 2.8 and she was admitted. She was transfused to a hemoglobin of 9.1. Yesterday she had hip incision and debridement. Her hemoglobin has dropped to 6.5. While in the hospital she had a nuclear medicine bleeding scan which was negative. She has had some "gelatinous blood" and clots with bowel movements. The patient's last normal hemoglobin was 13.6 on 06/04/2016. Her hemoglobin ranged around 11 g in 2017. A preoperative hemoglobin on 11/17/2019 was 8.9 with hypochromic microcytic indices. Her preoperative H&P done at the [facility] mentions iron deficiency anemia and she was placed on iron. The patient states that for about the last 6 months about once a week she has had "gelatinous" blood with bowel movements and some clots. She has not had abdominal pain. She specifically denies any heartburn, reflux, or epigastric discomfort. She had been on naproxen for a long period of time for her hip pain. Her last colonoscopy was in 1997 or so. She did not have polyps. She said there was another procedure done and "my bottom turned black" (this may have been a sphincterotomy and she was told she had a fissure) She does not recall being told she had diverticulosis although her son has this. Allergies/Adverse Reactions: Allergies cephalexin monohydrate [From Keflex] Allergy (Severe, Verified 02/10/20 11:50) swelling to face and throat Sulfa (Sulfonamide Antibiotics) Allergy (Severe, Verified 02/10/20 11:50) swelling to face and throat tetracycline Allergy (Severe, Verified 02/10/20 11:50) swelling to face and throat Home Medications: Home Medications Medication Instructions Recorded Last Taken Ferrous Sulfate 325 mg PO BID #60 tablet. 01/16/20 Unknown Diclofenac Sodium [Voltaren] 50 mg PO HS 02/10/20 Unknown Furosemide [Lasix] 40 mg PO DAILY 02/10/20 Unknown Lisinopril [Prinivil] 10 mg PO DAILY 02/10/20 Unknown Procedures Replacement of Left Hip Joint with Ceramic Synthetic Substitute, Uncemented, Open Approach (12/19/19) Replacement of Right Hip Joint with Synthetic Substitute, Open Approach (06/16/16) Debridement of left hip incision 02/13/2020 Medications - Medications Current Medications: Current Medications Acetaminophen (Tylenol) 1,000 mg PO Q6H PRN PRN Reason: Mild pain (pain scale 1-3) Stop: 03/11/20 16:15 Last Admin: 02/11/20 00:55 Dose: 1,000 mg Documented by: Hydrocodone Bitart/Acetaminophen ([place] 5-325) 1 each PO Q3H PRN PRN Reason: Pain Stop: 03/12/20 10:33 Last Admin: 02/14/20 10:03 Dose: 1 each Documented by: Clindamycin/Sodium Chloride (Cleocin) 600 mg in 50 mls @ 100 mls/hr IV Q8H [facility] Stop: 03/14/20 09:01 Last Infusion: 02/14/20 10:35 Dose: Infused Documented by: Ketorolac Tromethamine (Toradol) 30 mg IV Q6H PRN PRN Reason: Moderate Pain (pain scale 4-6) Stop: 02/15/20 18:07 Last Admin: 02/13/20 16:35 Dose: 30 mg Documented by: Lisinopril (Zestril) 10 mg PO DAILY [facility] Stop: 03/12/20 09:01 Last Admin: 02/14/20 10:04 Dose: 10 mg Documented by: Morphine Sulfate (Morphine Sulfate) 2 mg IV Q2H PRN PRN Reason: Severe Pain (pain scale 7-10) Stop: 03/14/20 17:17 Last Admin: 02/14/20 10:17 Dose: 2 mg Documented by: Polyethylene Glycol (Miralax) 17 gm PO DAILY [facility] Stop: 03/11/20 18:16 Last Admin: 02/14/20 09:20 Dose: Not Given Documented by: Saccharomyces Boulardii (Florastor) 250 mg PO BID [facility] Stop: 03/12/20 21:01 Last Admin: 02/14/20 10:04 Dose: 250 mg Documented by: Senna/Docusate Sodium (Senokot-S) 2 tab PO HS [facility] Stop: 03/11/20 21:01 Last Admin: 02/13/20 20:18 Dose: 2 tab Documented by: Review of Systems - Review of Systems Narrative: She states she feels much better today. There is no left hip discomfort after her procedure which is an improvement. She complains of multiple bruises. She also states that when she woke up this morning her left middle fingernail had a very painful blister at the corner of the nail Generalized/Overall Review: Absent: Chills, Fever EENTM: Present: No Symptoms Reported Respiratory: Present: No Symptoms Reported. Absent: Shortness of Breath Cardiac: Present: Other - Per leg edema has improved. Absent: Chest Pain, Palpitations Abdominal: Present: Bright blood from rectum - With "gelatinous material" and clots Genitourinary: Present: No Symptoms Reported Musculoskeletal: Present: Other - She states her left hip feels better Neurological: Present: No Symptoms Reported Skin: Present: Bruising, Other - Lesion on the left middle fingernail Endocrine: Present: No Symptoms Reported Physical Examination - Exam Narrative: She is sitting in the recliner. Appears comfortable. Vital Signs: Vital Signs - Last Taken Temp 37.1 C 02/14/20 10:15 Pulse 91 02/14/20 10:15 Resp 16 02/14/20 10:15 BP 131/77 02/14/20 10:15 Pulse Ox 100 02/14/20 10:15 O2 Oxygen Delivery Method Room Air Constitutional: Present: Alert, Oriented x3, Cooperative, No distress, Obese ENT Exam: Present: normal ENT inspection Eye Exam: bilateral eye: normal inspection Neck: Present: full range of motion, normal inspection, other - Short thick neck Breasts: Present: Exam deferred Respiratory: Present: no respiratory distress Cardiovascular/Chest: Present: regular rate, rhythm Abdomen: Present: nontender - Denies pain or tenderness, obese /Rectal: Present: Exam deferred Extremity: Present: normal inspection, other - She has a Hemovac in the left hip. Skin Exam: Present: warm/dry, other - She has a white blister which is painful on the corner of the left middle fingernail Neurologic: Present: renderer II-XII nml as tested, no motor/sensory deficits, alert, normal mood/affect, oriented x 3 Appearance: Present: appropriate appearance, appropriate insight, no memory impairment Eye contact: Present: cooperative, good eye contact, normal speech Thoughts: Present: normal thought pattern, no apparent hallucination - Results and Findings: Lab/Microbiology results last 24 hrs: Abnormal/Pending Laboratory Last 24 HRS 02/14/20 02/14/20 02/14/20 06:15 06:15 06:15 WBC 14.0 H RBC 2.43 L Hgb 6.5 L* Hct 21.2 L* MCH 26.7 L MCHC 30.7 L RDW 19.4 H Band Neuts % (Manual) 3 H Neutrophils # (Manual) 9.5 H Monocytes # (Manual) 1.3 H Est GFR (Non-Af Amer) 58 L D Calcium 7.7 L AST 105 H Alkaline Phosphatase 194 H Total Protein 5.7 L Albumin 1.6 L Crossmatch See Detail 02/13/20 02/10/20 20:35 12:00 WBC 16.1 H RBC 2.69 L Hgb 7.2 L* Hct 23.3 L* MCH 26.8 L MCHC 30.9 L RDW 18.9 H Band Neuts % (Manual) Neutrophils # (Manual) Monocytes # (Manual) Est GFR (Non-Af Amer) Calcium AST Alkaline Phosphatase Total Protein Albumin Crossmatch See Detail Culture 02/13/20 15:10 Surgical Culture - Preliminary Hip - Left No Growth 02/13/20 15:10 Surgical Culture - Preliminary Hip - Left Ruling Out Pathogen 02/11/20 Unknown Surgical Culture - Final Hip - Left Staphylococcus Aureus - Assessments/Findings (1) Anemia Diagnosis(s): She has been anemic since 2017. She was anemic prior to her left hip surgery with marked drop in hemoglobin since that time. She does have some chronic bleeding with bowel movements which she states has been going on for about 6 months. She denies any upper GI symptoms. She was on naproxen for a prolonged period of time. She has not had a colon exam since the late . She has never had an upper GI endoscopy. Pamphlets on EGD and GERD were reviewed with her and given to her. The risks and possible complications of EGD were explained. Pamphlets on colonoscopy and colon screening were reviewed with her and given to her. The risks and possible complications of colonoscopy were explained. After interactive discussion her questions were answered to her apparent satisfaction and she has given informed consent for EGD, colonoscopy, and possible hemorrhoid banding if appropriate. I have asked her to sign a release of information to be sent to [facility] to obtain a record of her previous colonoscopy. Problem: Acute Qualifiers: Anemia type: unspecified type Qualified Code(s): D64.9 - Anemia, unspecified
--- NOTE | 2020-02-14 13:26 | PN ---
Subjective - Date and Time Seen Date: 02/14/20 Time: 13:24 Subjective Narrative: Ms. Prasad states that her fatigue and pain is much better. She feels her hip pain is significantly improved. She denies fevers or chills. Objective - Vitals Vitals: Last Vital Signs Temp 37.1 C 02/14/20 13:11 Pulse 96 02/14/20 13:11 Resp 16 02/14/20 13:11 BP 148/78 H 02/14/20 13:11 Pulse Ox 100 02/14/20 13:11 - Abnormal Lab Findings Abnormal Lab Findings: Abnormal Lab Results 02/10/20 02/13/20 02/14/20 Range/Units 12:00 20:35 06:15 WBC 16.1 H 14.0 H (4.0-10.5) K/mm3 RBC 2.69 L 2.43 L (4.2-5.4) M/mm3 Hgb 7.2 L* 6.5 L* (12.5-16.0) gm/dL Hct 23.3 L* 21.2 L* (37.0-47.0) % MCH 26.8 L 26.7 L (27-31) pg MCHC 30.9 L 30.7 L (32-36) g/dl RDW 18.9 H 19.4 H (11.5-14.0) % Band Neuts % (Manual) 3 H (0-2.0) % Neutrophils # (Manual) 9.5 H (1.3-6.0) K/mm3 Monocytes # (Manual) 1.3 H (0.0-1.0) k/mm3 Est GFR (Non-Af Amer) (60-130) mL/min Calcium (7.9-10.9) mg/dL AST (0-48) U/L Alkaline Phosphatase (50-170) U/L Total Protein (6.2-8.2) gm/dL Albumin (3.4-5.0) gm/dl Crossmatch See Detail 02/14/20 02/14/20 Range/Units 06:15 06:15 WBC (4.0-10.5) K/mm3 RBC (4.2-5.4) M/mm3 Hgb (12.5-16.0) gm/dL Hct (37.0-47.0) % MCH (27-31) pg MCHC (32-36) g/dl RDW (11.5-14.0) % Band Neuts % (Manual) (0-2.0) % Neutrophils # (Manual) (1.3-6.0) K/mm3 Monocytes # (Manual) (0.0-1.0) k/mm3 Est GFR (Non-Af Amer) 58 L D (60-130) mL/min Calcium 7.7 L (7.9-10.9) mg/dL AST 105 H (0-48) U/L Alkaline Phosphatase 194 H (50-170) U/L Total Protein 5.7 L (6.2-8.2) gm/dL Albumin 1.6 L (3.4-5.0) gm/dl Crossmatch See Detail - Exam Exam Narrative: Left lower extremity: Dressings intact, neurovascular intact, drain in place Assessment/Plan - Problems/Diagnosis (1) Status post left hip replacement Problem: Chronic Narrative: Continue antibiotics pending cultures. Continue drain. Keep wound covered and dry. She has noted anemia which I do not feel is directly related to her hip and thus medicine is continuing to evaluate. From an orthopedic standpoint she can be discharged once she is medically stable. We will evaluate for removal of drain prior to discharge but she may go home with it if needed. I would recommend at least 6 weeks of antibiotics pending cultures.
[2020-02-14] MEDS: SENNOSIDES/DOCUSATE SODIUM 1 TAB TABLET PO SCH (20:13)
--- NOTE | 2020-02-14 20:58 | PN ---
Subjective - Date and Time Seen Date: 02/14/20 Time: 10:45 Subjective Narrative: Patient sitting comfortably in her chair, main concerns is that she has some pain at her IV insertion site. She is currently being transfused. Site is not infiltrated, just sore. She endorses thick stool still. No abdominal pain . Hip is sore but better prior to surgery with ortho. General surgery consulted regarding chronic anemia. Hemoglobin 6.5 this am. Denies palpitations or active bleeding and red blood cell scan negative. She does endorses some chest congestion. Objective - Review of Systems Generalized/Overall Review: Reports: Weakness. Denies: Chills, Fever EENTM: Reports: No Symptoms Reported Respiratory: Reports: Cough, Shortness of Breath. Denies: Wheezing Cardiac: Denies: Chest Pain, Edema, Palpitations Abdominal: Reports: Melena. Denies: Nausea, Vomiting, Abdominal Pain Genitourinary Symptoms: Reports: No Symptoms Reported Musculoskeletal Complaints: Reports: No Symptoms Reported Neurological: Reports: No Symptoms Reported Skin: Reports: Bruising - Vitals Vitals: Last Vital Signs Temp 37.5 C 02/14/20 17:49 Pulse 98 02/14/20 17:49 Resp 19 02/14/20 17:49 BP 137/61 02/14/20 17:49 Pulse Ox 98 02/14/20 17:49 - Abnormal Lab Findings Abnormal Lab Findings: Abnormal Lab Results 02/13/20 02/14/20 02/14/20 Range/Units 20:35 06:15 06:15 WBC 16.1 H 14.0 H (4.0-10.5) K/mm3 RBC 2.69 L 2.43 L (4.2-5.4) M/mm3 Hgb 7.2 L* 6.5 L* (12.5-16.0) gm/dL Hct 23.3 L* 21.2 L* (37.0-47.0) % MCH 26.8 L 26.7 L (27-31) pg MCHC 30.9 L 30.7 L (32-36) g/dl RDW 18.9 H 19.4 H (11.5-14.0) % Band Neuts % (Manual) 3 H (0-2.0) % Neutrophils # (Manual) 9.5 H (1.3-6.0) K/mm3 Monocytes # (Manual) 1.3 H (0.0-1.0) k/mm3 Est GFR (Non-Af Amer) 58 L D (60-130) mL/min Calcium 7.7 L (7.9-10.9) mg/dL AST 105 H (0-48) U/L Alkaline Phosphatase 194 H (50-170) U/L Total Protein 5.7 L (6.2-8.2) gm/dL Albumin 1.6 L (3.4-5.0) gm/dl Crossmatch 02/14/20 Range/Units 06:15 WBC (4.0-10.5) K/mm3 RBC (4.2-5.4) M/mm3 Hgb (12.5-16.0) gm/dL Hct (37.0-47.0) % MCH (27-31) pg MCHC (32-36) g/dl RDW (11.5-14.0) % Band Neuts % (Manual) (0-2.0) % Neutrophils # (Manual) (1.3-6.0) K/mm3 Monocytes # (Manual) (0.0-1.0) k/mm3 Est GFR (Non-Af Amer) (60-130) mL/min Calcium (7.9-10.9) mg/dL AST (0-48) U/L Alkaline Phosphatase (50-170) U/L Total Protein (6.2-8.2) gm/dL Albumin (3.4-5.0) gm/dl Crossmatch See Detail - Exam Constitutional: Present: Alert, Oriented x3, Obese ENT Exam: Present: hearing grossly normal. Absent: nasal congestion, nasal drainage Neck: Present: non-tender, supple Respiratory: Present: decreased breath sounds - Due to body habitus. Absent: crackles, wheezing Cardiovascular/Chest: Present: normal peripheral pulses Abdomen: Present: soft, nontender Extremity: Present: leg pain, swelling Appearance: Present: appropriate appearance, appropriate insight Assessment/Plan Plan Narrative: Hip pain improved since surgery. Ortho managing this. Anemia - currently being transfused 2 units. Gen Surgery consulted, likely plan for egd and colonoscopy. Will wait for there recs. Orderd cornet for breathing / congestion. Continue current tx plan. Nurse to call with questions or concerns. VSS and she isfebrile. - Problems/Diagnosis (1) Microcytic anemia Problem: Acute (2) Lower GI bleed Problem: Acute (3) Status post left hip replacement Problem: Chronic (4) Acute blood loss anemia Problem: Acute
[2020-02-15] MEDS: CLINDAMYCIN IN 0.9 % SOD CHLOR 600 MG/50 ML BAG IV SCH ×3 (01:36→18:12)
[2020-02-15] MEDS: MORPHINE SULFATE 2 MG/ML DISP.SYRIN IV PRN ×3 (01:42→14:35)
[2020-02-15] MEDS: SACCHAROMYCES BOULARDII 250 MG CAPSULE PO SCH ×2 (08:37→21:43)
[2020-02-15] MEDS: POLYETHYLENE GLYCOL 3350 17 GM PACKET PO SCH (08:37)
[2020-02-15 10:30] LABS: Mean Cell Volume 95.1 fl (78-100); Mean Corpuscular Hemoglobin 27.5 pg (27-31); Mean Corpuscular Hgb Conc 28.9 g/dl (32-36); Mean Platelet Volume 8.7 fl (8-12.5); Platelet Count 305 K/mm3 (150-450); Red Blood Count 1.82 M/mm3 (4.2-5.4); Red Cell Distribution Width 21.7 % (11.5-14.0); White Blood Count 25.9 K/mm3 (4.0-10.5)
[2020-02-15 10:42] LABS: Hematocrit 17.3 % (37.0-47.0); Total Cells Counted 100
--- NOTE | 2020-02-15 11:45 | ANES ---
Anesthesia Pre Procedure Eval Vitals/Labs: Last Vital Signs Temp 37.5 C 02/15/20 10:00 Pulse 100 02/15/20 10:00 Resp 20 02/15/20 10:00 BP 129/56 02/15/20 10:00 Pulse Ox 98 02/15/20 10:00 HOME MEDICATIONS Ferrous Sulfate 325 mg PO BID #60 tablet. 01/16/20 [Last Taken Unknown] Diclofenac Sodium [Voltaren] 50 mg PO HS 02/10/20 [Last Taken Unknown] Furosemide [Lasix] 40 mg PO DAILY 02/10/20 [Last Taken Unknown] Lisinopril [Prinivil] 10 mg PO DAILY 02/10/20 [Last Taken Unknown] Allergies/Adverse Reactions: Allergies Allergy/AdvReac Type Severity Reaction Status Date / Time cephalexin monohydrate Allergy Severe swelling Verified 02/10/20 11:50 [From Keflex] to face and throat Sulfa (Sulfonamide Allergy Severe swelling Verified 02/10/20 11:50 Antibiotics) to face and throat tetracycline Allergy Severe swelling Verified 02/10/20 11:50 to face and throat - Planned Procedure Planned Procedure: I and D lt hip Medication List Reviewed:: Yes Allergies Verified: Yes Medical History (Last Reviewed 02/15/20 @ 11:39 by Skyler Boyer CRNA) Left hip pain Onset Date: ~04/2019 PTSD (post-traumatic stress disorder) Onset Date: ~2009 after her son Hypertension Onset Date: ~2018 Surgical History (Last Reviewed 02/15/20 @ 11:39 by Skyler Boyer CRNA) H/O total hip arthroplasty Onset Date: ~05/2016 right hip 05/2016: Dr. Chance, left hip 12/19/19: H/O tubal ligation Onset Date: ~1989 History of appendectomy Onset Date: ~1979 Family History (Last Reviewed 02/15/20 @ 11:39 by Skyler Boyer CRNA) Sister History of breast cancer Grandmother , maternal Ovarian cancer Uterine cancer Mother Rheumatoid arthritis Father Alive and well - Family Anesthesia History Family History:: no untoward family reactions to anesthesia, no familial bleeding tendencies, no family history of clotting disorders, no family history of premature - Airway/Neck/Teeth Within Normal Limits:: Yes Teeth Condition: intact Neck Exam: full range of motion Mallampatti Score: 2 Thyromental (T-M) distance: > 6 cm Mandibulo Hyoid distance: > 3 cm - Respiratory Respiratory Physical: crackles Smoking Status: Former smoker - quit several years ago Sleep Apnea currently treated: No Sleep Apnea by current assessment: No - Cardiovascular Tolerate Activity: Poor Heart Sounds: S1 & S2, Regular - Gastrointestinal NPO since: 0 - Anesthesia Assessment and Plan Narrative: Anemia of unknown origin, continues to have blood in stool post prep. Hgb 5 aft er several units of blood. Intense discussion of anesthetic procedure and risks with pt. She is alert and appears to understand. ASA Class: PS, IV, E Anesthesia Type Plan: MAC
[2020-02-15] MEDS ORDERED: PROPOFOL VIAL IV ONE (11:50)
[2020-02-15 12:49] LABS: Anisocytosis 1+; Hypochromia 1+; Lymphocyte 13 % (20-51); Monocyte 8 % (0-9); Neutrophil 79 % (42-75); Neutrophil # 20.5 K/mm3 (1.3-6.0); Platelet Estimate Normal (NORMAL); Poikilocytosis 1+
--- NOTE | 2020-02-15 12:51 | ANES ---
Post Anesthesia Discharge - Transfer of Care Transfer of Care handoff given to nurse: Yes - Discharge to [facility] Discharge to A[facility]-no complications/pt stable: Yes - Awake and comfortable.
--- NOTE | 2020-02-15 13:34 | ANES ---
Post Anesthesia Assessment - Vital Signs Vitals: Last Vital Signs Temp 37.5 C 02/15/20 10:00 Pulse 105 H 02/15/20 13:00 Resp 20 02/15/20 10:00 BP 129/56 02/15/20 10:00 Pulse Ox 98 02/15/20 10:00 Airway Patency: Normal - Mental Status Level Of Consciousness: Awake, Alert, Appropriate - Pain Level Pain Score: 0 - N/V Assessment Nausea/Vomiting Presence: None Dehydration:: No
--- NOTE | 2020-02-15 14:23 | OR ---
Operative Report - Dictated Report Narrative: Operative Report Date of operation: 02/15/2020 Preoperative diagnosis: GI bleeding, anemia Postoperative diagnosis: Apparent upper GI bleed from posterior duodenal bulb ulcer with clot. Grossly normal colonoscopy Operation: EGD with biopsy. Colonoscopy Surgeon: Dr Ledsema Anesthesia: FREDRICK Boyer CRNA Indications for procedure: The patient is a 54-year-old female who underwent an elective left total hip arthroplasty on 12/19/2019. Postoperatively her hemoglo bin ranged around 7.1 g. When she presented for a follow-up orthopedic visit she was profoundly short of breath and triaged to the emergency room where her hemoglobin was found to be 2.8. She was admitted and transfused. Her hemoglobin initially stanislav however has fallen again. She is having dark heme positive bowel movements Findings: Evidence of upper GI bleeding with presumed source posterior duodenal bulb ulcer with large clot. Grossly normal colonoscopy Narrative of procedure: The patient was identified preoperatively, and prior to the administration of anesthetic a multidisciplinary timeout was observed EGD: With the patient in the recumbent position, a bite-block was placed, intravenous sedation was administered, and the patient's eyes covered with a towel. The flexible fiberoptic gastroscope was advanced into the posterior pharynx which appeared normal. The supraglottic larynx appeared normal. The cords appeared normal, moved well, and opposed in the midline. The scope was advanced under direct vision into the proximal esophagus which appeared normal. The esophagus appeared freely distensible with normal mucosa. The esophageal mucosa appeared normal down to the gastroesophageal junction which was sharp and noninflamed. The GE junction appeared normally distensible. The scope was advanced into the stomach which was insufflated with air. Immediately apparent was a large amount of clot and old blood. This was carefully suctioned as much as possible. A retroflexed view of the gastric fundus revealed no obvious bleeding site and a normal-appearing gastric side of the GE junction. The scope was redirected toward the pylorus. The patient was repositioned on her left side to roll blood clot away from the pylorus. The pylorus appeared patent, however had clot in the opening. The scope was advanced into the duodenal bulb which contained a large amount of clot but no bright red blood. The scope was advanced further to the horizontal portion of the duodenum which appeared normal, specifically the villous architecture appeared well preserved and bile was present. The scope was slowly withdrawn through the duodenal bulb with confirmation that the clot was adherent to the posterior aspect. The clot was left intact. The scope was withdrawn into the stomach and sales [employer] electric service biopsy of gastric mucosa obtained for CLOtest. The biopsy site was seen to be hemostatic. The insufflated air and as much liquid as possible was removed, the scope withdrawn from the patient, and this portion of the procedure terminated. COLONOSCOPY: The patient was then placed in the left lateral position, and the perineum was inspected. There was no evidence of pilonidal disease or skin breakdown. The external appearance of the anus was remarkable for large external hemorrhoidal skin tags. Sphincter tone was good. The flexible fiberoptic colonoscope was inserted into the rectum which was insufflated with air. The rectal mucosa and submucosal vascular pattern appeared normal, the prep was seen to be relatively complete with only dark liquid material remaining. This could be suctioned sufficiently for diagnostic purposes. The scope was advanced through the sigmoid colon, up the descending colon, and around the splenic flexure where the triangular haustral architecture of the transverse colon was seen. The scope was advanced across the transverse colon, around the hepatic flexure to the cecum, where the confluence of tenia and the ileocecal valve were identified. The mucosa at this level appeared normal. The scope was then slowly withdrawn in a circular fashion so that all aspects of colonic mucosa were inspected. The colon was somewhat capacious in character. The haustral architecture appeared well preserved throughout with no evidence of external compression. The mucosa and submucosal vascular pattern appeared normal, specifically there was no gross evidence to suggest colitis or inflammatory bowel disease and no AV malf ormations were seen. No antoine diverticular openings were demonstrated. No bleeding sites were seen. No polyps were encountered. The scope was gradually withdrawn to the level of the rectum. As much insufflated air as possible was removed. The scope was withdrawn from the patient and the procedure terminated. The patient tolerated the anesthetic and procedure well without complication and was transferred back to her room awake and in stable condition. RECOMMENDATION: IV Protonix drip with p.o. Carafate. Avoid NSAIDs. Transfuse as needed. Serial hemoglobin/hematocrit determinations. If the patient continues to bleed or becomes unstable consideration should be given to transfer to a higher level of care for embolization, prior to consideration of an operation due to her abdominal obesity Reviewed and electronically signed
[2020-02-15] MEDS: LISINOPRIL 10 MG TABLET PO SCH (14:27)
[2020-02-15] MEDS: PANTOPRAZOLE SODIUM 40 MG in NORMAL SALINE 100 ML IV SCH ×3 (14:28→23:32)
[2020-02-15] MEDS: SUCRALFATE 1 G TABLET PO SCH ×3 (14:31→21:43)
[2020-02-15] MEDS ORDERED: ACETAMINOPHEN 1,000 MG/100 ML BTL IV PRN (16:33)
[2020-02-15] MEDS ORDERED: FUROSEMIDE 10 MG/ML VIAL IV ONE (18:52)
[2020-02-15] MEDS: HYDROcodone/ACETAMINOPHEN 1 EACH TABLET PO PRN ×2 (19:51→22:59)
--- NOTE | 2020-02-15 20:13 | PN ---
Subjective - Date and Time Seen Date: 02/15/20 Time: 19:56 Subjective Narrative: Patient is slightly distressed, dizzy when seen this evening following her EGD/colonoscopy. She was found to have a large duodenal bulb ulcer which is most likely the cause of her upeer GI bleed. Currently being transfused as her hemoglobin was 5.0. 3 units of PRBC and 2 units of FFP ordered. Her vital signs are stable. She is nauseated likely from the blood clots seen on her EGD. She was started on a protonix drip and carafate ACHS. Objective - Review of Systems Generalized/Overall Review: Reports: Weakness, Fever, Fatigue. Denies: Chills EENTM: Reports: No Symptoms Reported Respiratory: Reports: Shortness of Breath. Denies: Cough Cardiac: Reports: No Symptoms Reported Abdominal: Reports: Nausea, Vomiting, Hematemesis, Melena. Denies: Abdominal Pain, Diarrhea Genitourinary Symptoms: Reports: No Symptoms Reported Musculoskeletal Complaints: Reports: Joint Pain Neurological: Reports: No Symptoms Reported Skin: Reports: Bruising - arms, belly - Vitals Vitals: Last Vital Signs Temp 36.5 C 02/15/20 19:47 Pulse 96 02/15/20 19:47 Resp 18 02/15/20 19:47 BP 112/46 02/15/20 19:47 Pulse Ox 100 02/15/20 19:47 - Abnormal Lab Findings Abnormal Lab Findings: Abnormal Lab Results 02/14/20 02/15/20 Range/Units 06:15 10:14 WBC 25.9 H D (4.0-10.5) K/mm3 RBC 1.82 L (4.2-5.4) M/mm3 Hgb 5.0 L* D (12.5-16.0) gm/dL Hct 17.3 L* (37.0-47.0) % MCHC 28.9 L (32-36) g/dl RDW 21.7 H (11.5-14.0) % Neutrophils % (Manual) 79 H (42-75) % Lymphocytes % (Manual) 13 L (20-51) % Neutrophils # (Manual) 20.5 H (1.3-6.0) K/mm3 Monocytes # (Manual) 2.1 H (0.0-1.0) k/mm3 Crossmatch See Detail - Exam Constitutional: Present: Alert, Oriented x3, Mild distress, Morbidly obese ENT Exam: Present: hearing grossly normal Neck: Present: non-tender, supple Respiratory: Present: lungs clear, normal breath sounds, no respiratory distress Cardiovascular/Chest: Present: regular rate, rhythm, no murmur Abdomen: Present: soft, nontender Skin Exam: Present: normal color, other - ecchymosis on arms Appearance: Present: appropriate appearance, appropriate insight Eye contact: Present: cooperative, good eye contact Thoughts: Present: normal thought pattern, normal mood /affect Assessment/Plan Plan Narrative: Patient currently stable but in serious condition. Large duodenal ulcer seen on EGD, patient currently being transfused 3 units PRBC and 2 units FFP. She was started on protnoix drip, carafate ACHS. All nsaid discontinued. Recommendations for transfer to higher level of care if she continues to bleed or becomes hemodynamically unstable, he recommends embolization if possible prior to abdominal surgery due to abdominal girth. Repeat hemogram 2 hours after final unit of blood given. Will monitor hemoglobin tomorrow with serial lab draws. Will order this. Iv tylenol for aches and fevers. Ortho monitoring hip and incision, appreciate there help. Her vital signs are stable. No DVT ppx at this time. Clear diet restarted, will advance slowly tomorrow but want bowel rest. Nurse to call with questions or concerns. - Problems/Diagnosis (1) Acute blood loss anemia Problem: Chronic (2) Upper GI bleed Problem: Acute (3) Microcytic anemia Problem: Acute (4) Lower GI bleed Problem: Ruled-out (5) Status post left hip replacement Problem: Chronic
[2020-02-15] MEDS: SENNOSIDES/DOCUSATE SODIUM 1 TAB TABLET PO SCH (21:43)
[2020-02-16] MEDS: CLINDAMYCIN IN 0.9 % SOD CHLOR 600 MG/50 ML BAG IV SCH ×2 (02:14→08:33)
[2020-02-16 04:38] LABS: Mean Cell Volume 93.5 fl (78-100); Mean Platelet Volume 9.4 fl (8-12.5); Platelet Count 224 K/mm3 (150-450); Red Blood Count 1.69 M/mm3 (4.2-5.4); Red Cell Distribution Width 19.9 % (11.5-14.0)
[2020-02-16 05:07] LABS: Hematocrit 15.8 % (37.0-47.0); Hemoglobin 4.9 gm/dL (12.5-16.0)
[2020-02-16] MEDS: PANTOPRAZOLE SODIUM 40 MG in NORMAL SALINE 100 ML IV SCH ×2 (05:07→10:12)
[2020-02-16 05:08] LABS: Total Cells Counted 100
[2020-02-16 05:34] LABS: Anion Gap 11.2 mmol/L (6.8-13.8); BUN/Creatinine Ratio 22.6 (9.0-21.6); Calcium * 7.1 mg/dL (7.9-10.9); Carbon Dioxide 24.8 mmol/L (24-32.6); Estimated Creat Clear 67.2
[2020-02-16 05:36] LABS: Lymphocyte 19 % (20-51); Monocyte 3 % (0-9); Neutrophil 78 % (42-75); Neutrophil # 21.1 K/mm3 (1.3-6.0)
[2020-02-16 05:37] LABS: Platelet Estimate Normal (NORMAL); RBC Morphology Normal (NORMAL)
[2020-02-16] MEDS: SUCRALFATE 1 G TABLET PO SCH ×2 (06:46→10:15)
[2020-02-16] MEDS: HYDROcodone/ACETAMINOPHEN 1 EACH TABLET PO PRN ×3 (07:11→15:05)
[2020-02-16] MEDS: SACCHAROMYCES BOULARDII 250 MG CAPSULE PO SCH (08:32)
[2020-02-16] MEDS: LISINOPRIL 10 MG TABLET PO SCH (08:32)
[2020-02-16] MEDS: POLYETHYLENE GLYCOL 3350 17 GM PACKET PO SCH (08:52)
--- NOTE | 2020-02-16 13:41 | DS ---
Transfer Discharge Summary - Course Description of Stay: 54-year-old female admitted for symptomatic anemia and complications from left total hip replacement was evaluated at bedside and was found to be afebrile and in no acute distress. The patient has had an eventful intrahospital stay that required multiple blood transfusions with a total of 15 units of PRBC and 4 units of FFP to treat ongoing internal bleeding from an unknown source. Patient underwent a left hip replacement this past November and was discharged home only to be found to be anemic several weeks later by the orthopedic surgeon. The patient was started on oral iron which was not effective. She reported that on several occasions she had bloody bowel movements with a small amount of blood which she attributed to her known external hemorrhoids. However, the patient symptoms of paleness weakness and tachycardia worsened and she was subsequently sent to the ER from her orthopedics office where she was found to have a hemoglobin of 2.8, the patient was promptly admitted and transfused multiple units of PRBCs and FFP in order to address the bleeding. During the hospitalization she was taken back to the OR by the orthopedic surgeon who performed incision and drainage on her wound in order to clean it out. He did not find any evidence of active infection despite the presence of a clear drainage. The patient also underwent upper and lower endoscopies in an effort to discover the source of her bleeding and a duodenal bulb ulcer with a superimposed clot was found, there was no evidence of ongoing bleeding reported. Nevertheless the general surgeon who did the scope recommended IV Protonix and to avoid NSAIDs which were carried out. She was also treated with Carafate. The patient was administered an additional 3 units of blood last night and now her hemoglobin remains at 4.9 her case became increasingly alarming due to not being able to find the source of the bleeding. Therefore decision was made to transfer the patient to a higher level of care with the availability of the different specialties to manage her. We will discharge the patient and transport her in an ambulance to [facility] surgical ICU for further evaluation management. Procedures Performed: see notes below - Incisiona nd drainage of left hip - Results and Findings Results and Findings: Laboratory Results - last 24 hr 02/14/20 02/16/20 02/16/20 06:15 04:45 04:45 WBC 27.0 H RBC 1.69 L Hgb 4.9 L* Hct 15.8 L* MCV 93.5 MCH 29.0 MCHC 31.0 L RDW 19.9 H Plt Count 224 MPV 9.4 Neutrophils % (Manual) 78 H Lymphocytes % (Manual) 19 L Monocytes % (Manual) 3 Neutrophils # (Manual) 21.1 H Lymphocytes # (Manual) 5.1 H Monocytes # (Manual) 0.8 Platelet Estimate Normal RBC Morphology Normal Sodium 135 Plasma Sodium 135 Potassium 4.0 Chloride 103 Carbon Dioxide 24.8 Anion Gap 11.2 BUN 21 Creatinine 0.93 Est GFR (Non-Af Amer) 67 BUN/Creatinine Ratio 22.6 H Random Glucose 109 Calcium 7.1 L Blood Type O Positive Antibody Screen Negative Crossmatch See Detail - Medications Medications: Active Medications Acetaminophen (Tylenol) 1,000 mg PO Q6H PRN PRN Reason: Mild pain (pain scale 1-3) Stop: 03/11/20 16:15 Last Admin: 02/11/20 00:55 Dose: 1,000 mg Documented by: Hydrocodone Bitart/Acetaminophen ([place] 5-325) 1 each PO Q3H PRN PRN Reason: Pain Stop: 03/12/20 10:33 Last Admin: 02/16/20 11:33 Dose: 1 each Documented by: Clindamycin/Sodium Chloride (Cleocin) 600 mg in 50 mls @ 100 mls/hr IV Q8H [facility] Stop: 03/14/20 09:01 Last Infusion: 02/16/20 12:51 Dose: Infused Documented by: Pantoprazole Sodium 40 mg/ (Sodium Chloride) 100 mls @ 20 mls/hr IV Q5H [facility] Stop: 03/17/20 13:31 Last Admin: 02/16/20 10:12 Dose: 20 mls/hr Documented by: Acetaminophen (Ofirmev) 1,000 mg in 100 mls @ 400 mls/hr IV Q6H PRN PRN Reason: Pain Stop: 03/16/20 16:34 Last Infusion: 02/15/20 16:55 Dose: Infused Documented by: Lisinopril (Zestril) 10 mg PO DAILY [facility] Stop: 03/12/20 09:01 Last Admin: 02/16/20 08:32 Dose: 10 mg Documented by: Morphine Sulfate (Morphine Sulfate) 2 mg IV Q2H PRN PRN Reason: Severe Pain (pain scale 7-10) Stop: 03/14/20 17:17 Last Admin: 02/15/20 14:35 Dose: 2 mg Documented by: Polyethylene Glycol (Miralax) 17 gm PO DAILY [facility] Stop: 03/11/20 18:16 Last Admin: 02/16/20 08:52 Dose: Not Given Documented by: Saccharomyces Boulardii (Florastor) 250 mg PO BID [facility] Stop: 03/12/20 21:01 Last Admin: 02/16/20 08:32 Dose: 250 mg Documented by: Senna/Docusate Sodium (Senokot-S) 2 tab PO HS [facility] Stop: 03/11/20 21:01 Last Admin: 02/15/20 21:43 Dose: 2 tab Documented by: Sucralfate (Carafate) 1 g PO ACHS [facility] Stop: 03/16/20 17:01 Last Admin: 02/16/20 10:15 Dose: 1 g Documented by: Discontinued Medications Hydrocodone Bitart/Acetaminophen ([place] 5-325) 1 each PO Q4H PRN PRN Reason: Pain Stop: 03/12/20 10:33 Last Admin: 02/13/20 14:05 Dose: 1 each Documented by: Duloxetine HCl (Cymbalta) 60 mg PO DAILY [facility] Stop: 03/12/20 09:01 Last Admin: 02/13/20 09:07 Dose: Not Given Documented by: Furosemide (Lasix) 40 mg IV ONCE ONE Stop: 02/10/20 21:26 Last Admin: 02/10/20 21:49 Dose: 40 mg Documented by: Furosemide (Lasix) 20 mg IV ONCE ONE Stop: 02/15/20 18:53 Last Admin: 02/15/20 19:07 Dose: 20 mg Documented by: Vancomycin/PEG/NADA/Lysine/Water (Vancomycin) 1 gm in 200 mls @ 140 mls/hr IV Q24H [facility]; Protocol Stop: 03/12/20 10:46 Last Infusion: 02/12/20 12:17 Dose: Infused Documented by: Pantoprazole Sodium 80 mg/ (Sodium Chloride) 100 mls @ 400 mls/hr IV ONCE ONE Stop: 02/13/20 06:46 Last Infusion: 02/13/20 07:12 Dose: Infused Documented by: Clindamycin/Sodium Chloride (Cleocin) 900 mg in 50 mls @ 50 mls/hr IV PRN PRN; Protocol PRN Reason: SURGERY Stop: 02/13/20 23:59 Last Infusion: 02/13/20 15:50 Dose: Infused Documented by: Lactated Ringer's (Lactated Ringers) 1,000 mls @ 100 mls/hr IV .Q10H PRN PRN Reason: HYDRATION Stop: 02/14/20 23:59 Last Infusion: 02/15/20 13:15 Dose: Infused Documented by: Ketorolac Tromethamine (Toradol) 30 mg IV Q6H PRN PRN Reason: Moderate Pain (pain scale 4-6) Stop: 02/15/20 18:07 Last Admin: 02/13/20 16:35 Dose: 30 mg Documented by: Sodium Sulfate/Potass Sulf/Mag Sulf (Suprep Bowel Prep Kit) 1 kit PO ONCE ONE Stop: 02/14/20 12:28 Last Admin: 02/14/20 16:22 Dose: 1 kit Documented by: Vancomycin HCl (Vancomycin) 1 gm TP ONCE ONE; Protocol Stop: 02/13/20 15:24 Last Admin: 02/13/20 15:20 Dose: 1 gm Documented by: - Disposition Disposition: Short Term Hospital Inpatient Condition: Serious Discharge Date: 02/16/20 Discharge Time: 13:40
[2020-02-16 14:44] VITALS: BP 118/52
== END 2020-02-16 15:25 | disposition short-term general hospital (02) | DRG 802 ==
LOC: ER 11:30 → MS 13:01
PROVIDERS: ADMIT Family Medicine; ATTEND Family Medicine
DX: B95.8 Unspecified staphylococcus as the cause of diseases classified elsewhere; I10 Essential (primary) hypertension; K64.4 Residual hemorrhoidal skin tags; K26.4 Chronic or unspecified duodenal ulcer with hemorrhage; T81.31XA Disruption of external operation (surgical) wound, not elsewhere classified, initial encounter; M94.0 Chondrocostal junction syndrome [Tietze]; N17.8 Other acute kidney failure; D46.4 Refractory anemia, unspecified; K59.00 Constipation, unspecified; Z96.642 Presence of left artificial hip joint; R78.81 Bacteremia; D62 Acute posthemorrhagic anemia